=== PATIENT | male | born 1955 | race Caucasian/White ===

== ENCOUNTER → 2016-08-22 | Outpatient (CLI) | payer BC ==
--- NOTE | 2016-08-22 14:44 | XR ---
EXAM TYPE: LUMBAR SPINE X RAY SERIES COMPARISON: 10/04/2015 HISTORY: Pain FINDINGS: Alignment is anatomic. The pedicles are intact. The transverse processes are intact. There is no s pondylolysis or spondylolisthesis. There is an 8 mm lower pole right renal calculus. Severe degenerative disc disease at levels L1-S1 wi th most marked findings at L4-5 and L5-S1. Facet arthropathy noted at all levels. Vascular calcification the aorta. IMPRESSION: 1. Severe multilevel degenerative disc disease. 2. Right lower pole 8 mm renal calculus.
== END | disposition home or self-care (01) ==
LOC: RADXRMAIN 14:00
PROVIDERS: ATTEND Internal Medicine
DX: M51.37 Other intervertebral disc degeneration, lumbosacral region (principal); M51.36 Other intervertebral disc degeneration, lumbar region
CPT/HCPCS: 72110

== ENCOUNTER → 2016-10-05 | Outpatient (CLI) | payer BC ==
[2016-10-05 10:09] LABS: CHCM 32.1; HCT 47.2 % (39.0-53.0); HDW 2.62; MCH 30.9 pg (25.0-35.0); MCHC 31.8 g/dL (31.0-37.0); MCV 97.3 fL (80.0-100.0); Mean Platelet Volume 9.1; RBC 4.85 m/uL (4.30-5.90); RDW 13.5 % (11.5-15.5); WBC 7.1 k/uL (3.8-10.6)
[2016-10-05 10:35] LABS: Cholesterol 144 mg/dL (<200); HDL Cholesterol 38 mg/dL (40-60); Lithium 0.9 mmol/L; Non-African American GFR(MDRD) >60 (>60 ml/min/1.73 sqM); Triglycerides 91 mg/dL (<150)
[2016-10-05 13:21] LABS: Hemoglobin A1C 5.9 % (4.2-6.1)
== END | disposition home or self-care (01) ==
LOC: LABWHC1 08:38
PROVIDERS: ATTEND Psychiatry & Neurology Psychiatry
DX: E03.9 Hypothyroidism, unspecified (principal); E78.5 Hyperlipidemia, unspecified; Z79.899 Other long term (current) drug therapy
CPT/HCPCS: 36415; 80061; 80178; 82565; 83036; 84439; 84443; 85027

== ENCOUNTER → 2016-10-14 | Outpatient (CLI) | payer BC ==
[2016-10-14 10:39] LABS: Basophils # (A) 0.1 k/uL (0-0.2); Basophils % (A) 1 %; CH 30.8; CHCM 32.2; Eosinophils # (A) 0.2 k/uL (0-0.7); Eosinophils % (A) 3 %; HCT 46.9 % (39.0-53.0); HDW 2.57; HGB 14.6 gm/dL (13.0-17.5); Luc # (Auto) 0.22; Luc % (Auto) 4; Lymphocytes # (A) 1.3 k/uL (1.0-4.8); Lymphocytes % (A) 21 %; MCHC 31.1 g/dL (31.0-37.0); MCV 96.3 fL (80.0-100.0); Mean Platelet Volume 8.9; Monocytes # (A) 0.6 k/uL (0-1.0); Monocytes % (A) 10 %; Neutrophils # (A) 3.9 k/uL (1.3-7.7); Neutrophils % (A) 62 %; RBC 4.87 m/uL (4.30-5.90); RDW 13.6 % (11.5-15.5); WBC 6.2 k/uL (3.8-10.6); WBC (Perox) 6.33
--- NOTE | 2016-10-14 15:17 | XR ---
EXAMINATION TYPE: XR chest 2V DATE OF EXAM: 10/14/2016 10:28 AM HISTORY: J12.9 PNEUMONIA,INFLUENZA. REFERENCE: Previous study dated 03/03/2011. FINDINGS: There is a small area of increased density adjacent to the left heart border. Lungs otherwi se clear. Pleural spaces are clear. Heart size is normal. IMPRESSION: I CANNOT EXCLUDE AN EARLY LEFT LOWER LOBE INFILTRATE.
== END | disposition home or self-care (01) ==
LOC: LABWHC1 10:04
PROVIDERS: ATTEND Internal Medicine
DX: J40 Bronchitis, not specified as acute or chronic (principal); J11.1 Influenza due to unidentified influenza virus with other respiratory manifestations; R50.9 Fever, unspecified
CPT/HCPCS: 36415; 71020; 85025; 87502; 99212

== ENCOUNTER 2017-01-14 16:23 | Inpatient (IN) | payer BC ==
[2017-01-14] MEDS ORDERED: ASPIRIN 81 MG CHEW PO STA (16:41)
[2017-01-14] MEDS ORDERED: NITROGLYCERIN OINT 1 INCH/GM PACKET TOPICAL STA (16:41)
--- NOTE | 2017-01-14 16:44 | ED ---
General Adult HPI - General Chief complaint: Chest Pain Stated complaint: Chest Pain Time Seen by Provider: 01/14/17 16:33 Source: patient, RN notes reviewed Mode of arrival: wheelchair Limitations: no limitations - History of Present Illness Initial comments: Patient is a pleasant 61-year-old male presenting to the emergency department complaining of chest discomfort. Onset of symptoms was around 2 hours ago. Patient was doing heavy lifting. Symptoms were moderate. Symptoms are mild at this point rated 2/10. Patient did have associated diaphoresis. No nausea or dyspnea. No leg pain or leg swelling. No abdominal pain. Patient had a couple episodes of chest discomfort yesterday that were short lasting and spontaneous resolved. patient states discomfort is difficult to describe. There was radiation towards left arm. - Related Data Home Medications Medication Instructions Recorded Confirmed Ascorbic Acid [Vitamin C] 1,000 mg PO DAILY 12/16/14 01/14/17 Atorvastatin [Lipitor] 20 mg PO HS 12/16/14 01/14/17 Dipyridamole-Aspirin 200-25 mg 1 cap PO BID 12/16/14 01/14/17 [Aggrenox] Levothyroxine Sodium [Synthroid] 50 mcg PO DAILY 12/16/14 01/14/17 amLODIPine [Norvasc] 5 mg PO HS 12/16/14 01/14/17 Citalopram Hydrobromide [CeleXA] 20 mg PO DAILY 01/14/17 01/14/17 Diclofenac Potassium [Cataflam] 50 mg PO BID 01/14/17 01/14/17 Lisinopril [Zestril] 20 mg PO BID 01/14/17 01/14/17 [place] Carbonate [[place] 300 mg PO BID 01/14/17 01/14/17 Carbonate ER] Allergies Allergy/AdvReac Type Severity Reaction Status Date / Time Penicillins Allergy Rash/Hives Verified 01/14/17 16:55 Review of Systems ROS Statement: Those systems with pertinent positive or pertinent negative responses have been documented in the HPI. ROS Other: All systems not noted in ROS Statement are negative. Constitutional: Denies: fever Eyes: Denies: eye pain ENT: Denies: ear pain Respiratory: Denies: cough, dyspnea Cardiovascular: Reports: chest pain Endocrine: Denies: fatigue Gastrointestinal: Denies: abdominal pain Genitourinary: Denies: dysuria Musculoskeletal: Denies: back pain Skin: Denies: rash Neurological: Denies: weakness Past Medical History Past Medical History: CVA/TIA, Hyperlipidemia, Hypertension, Thyroid Disorder Additional Past Medical History / Comment(s): Stroke 2011 - left eye peripheral and centre vision, enlarged thyroid History of Any Multi-Drug Resistant Organisms: None Reported Past Surgical History: Tonsillectomy Additional Past Surgical History / Comment(s): hemorrhoidectomy, double inguinal hernia repair Past Anesthesia/Blood Transfusion Reactions: No Reported Reaction Past Psychological History: Bipolar Smoking Status: Former smoker Past Alcohol Use History: Rare Past Drug Use History: None Reported - Past Family History Father History Unknown: Yes General Exam Limitations: no limitations General appearance: alert, in no apparent distress Head exam: Present: atraumatic Eye exam: Present: normal appearance, PERRL ENT exam: Present: normal oropharynx Neck exam: Present: normal inspection Respiratory exam: Present: normal lung sounds bilaterally. Absent: chest wall tenderness Cardiovascular Exam: Present: regular rate, normal rhythm Expanded Peripheral pulses: 2+: Radial (R), Radial (L), Posterior Tibialis (R), Posterior Tibialis (L) GI/Abdominal exam: Present: soft. Absent: tenderness Extremities exam: Present: normal inspection. Absent: pedal edema, calf tenderness Neurological exam: Present: alert Psychiatric exam: Present: normal affect, normal mood Skin exam: Present: normal color Course Vital Signs 01/14/17 01/14/17 01/14/17 16:26 16:48 17:28 Temperature 98.0 F Pulse Rate 85 85 Pulse Rate [ 84 Right Radial] Respiratory 20 18 Rate Blood Pressure 151/98 136/89 O2 Sat by Pulse 98 96 Oximetry 01/14/17 18:46 Temperature Pulse Rate 84 Pulse Rate [ Right Radial] Respiratory 18 Rate Blood Pressure 138/89 O2 Sat by Pulse 96 Oximetry EKG Findings - EKG Comments: EKG Findings:: Normal sinus rhythm 72. Normal intervals. Left axis. Normal QRS. Normal ST-T. Medical Decision Making - Medical Decision Making Patient reevaluated and resting comfortably in bed. Symptom-free at this time. Patient and family updated on results and plan. Case was discussed in detail with Dr. Lam, covering for Dr. Huynh he who will admit. - Lab Data Result diagrams: 01/14/17 16:35 01/14/17 16:35 Lab Results 01/14/17 01/14/17 01/14/17 Range/Units 16:35 16:35 16:35 WBC 7.1 (3.8-10.6) k/uL RBC 4.72 (4.30-5.90) m/uL Hgb 14.8 (13.0-17.5) gm/dL Hct 43.9 (39.0-53.0) % MCV 93.1 (80.0-100.0) fL MCH 31.4 (25.0-35.0) pg MCHC 33.8 (31.0-37.0) g/dL RDW 13.6 (11.5-15.5) % Plt Count 170 (150-450) k/uL Neutrophils % 77 % Lymphocytes % 14 % Monocytes % 5 % Eosinophils % 2 % Basophils % 1 % Neutrophils # 5.5 (1.3-7.7) k/uL Lymphocytes # 1.0 (1.0-4.8) k/uL Monocytes # 0.4 (0-1.0) k/uL Eosinophils # 0.1 (0-0.7) k/uL Basophils # 0.1 (0-0.2) k/uL PT 9.8 (9.0-12.0) sec INR 1.0 (<1.1) APTT 21.8 L (22.0-30.0) sec Sodium 143 (137-145) mmol/L Potassium 4.4 (3.5-5.1) mmol/L Chloride 111 H (98-107) mmol/L Carbon Dioxide 22 (22-30) mmol/L Anion Gap 10 mmol/L BUN 21 H (9-20) mg/dL Creatinine 1.03 (0.66-1.25) mg/dL Est GFR (MDRD) Af Amer >60 (>60 ml/min/1.73 sqM) Est GFR (MDRD) Non-Af >60 (>60 ml/min/1.73 sqM) Glucose 171 H (74-99) mg/dL Calcium 9.4 (8.4-10.2) mg/dL Magnesium 1.9 (1.6-2.3) mg/dL Total Bilirubin 0.4 (0.2-1.3) mg/dL AST 30 (17-59) U/L ALT 55 (21-72) U/L Alkaline Phosphatase 84 (38-126) U/L Total Creatine Kinase (55-170) U/L CK-MB (CK-2) (0.0-2.4) ng/mL CK-MB (CK-2) Rel Index Troponin I (0.000-0.034) ng/mL Total Protein 6.7 (6.3-8.2) g/dL Albumin 3.9 (3.5-5.0) g/dL 01/14/17 01/14/17 Range/Units 16:35 16:35 WBC (3.8-10.6) k/uL RBC (4.30-5.90) m/uL Hgb (13.0-17.5) gm/dL Hct (39.0-53.0) % MCV (80.0-100.0) fL MCH (25.0-35.0) pg MCHC (31.0-37.0) g/dL RDW (11.5-15.5) % Plt Count (150-450) k/uL Neutrophils % % Lymphocytes % % Monocytes % % Eosinophils % % Basophils % % Neutrophils # (1.3-7.7) k/uL Lymphocytes # (1.0-4.8) k/uL Monocytes # (0-1.0) k/uL Eosinophils # (0-0.7) k/uL Basophils # (0-0.2) k/uL PT (9.0-12.0) sec INR (<1.1) APTT (22.0-30.0) sec Sodium (137-145) mmol/L Potassium (3.5-5.1) mmol/L Chloride (98-107) mmol/L Carbon Dioxide (22-30) mmol/L Anion Gap mmol/L BUN (9-20) mg/dL Creatinine (0.66-1.25) mg/dL Est GFR (MDRD) Af Amer (>60 ml/min/1.73 sqM) Est GFR (MDRD) Non-Af (>60 ml/min/1.73 sqM) Glucose (74-99) mg/dL Calcium (8.4-10.2) mg/dL Magnesium (1.6-2.3) mg/dL Total Bilirubin (0.2-1.3) mg/dL AST (17-59) U/L ALT (21-72) U/L Alkaline Phosphatase (38-126) U/L Total Creatine Kinase 128 (55-170) U/L CK-MB (CK-2) 2.1 (0.0-2.4) ng/mL CK-MB (CK-2) Rel Index 1.6 Troponin I 0.022 (0.000-0.034) ng/mL Total Protein (6.3-8.2) g/dL Albumin (3.5-5.0) g/dL - Radiology Data Radiology results: image reviewed (Chest x-ray shows no acute process) Critical Care Time Critical Care Time: Yes Total Critical Care Time: 31 Disposition Clinical Impression: Unstable angina pectoris Disposition: ADMITTED IP TO THIS HOSP Referrals: Cezar Webster MD [Primary Care Provider] - 1-2 days Decision Time: 19:03
[2017-01-14 16:52] LABS: Basophils # (A) 0.1 k/uL (0-0.2); Basophils % (A) 1 %; CH 31.2; CHCM 33.7; Eosinophils # (A) 0.1 k/uL (0-0.7); Eosinophils % (A) 2 %; HCT 43.9 % (39.0-53.0); HDW 2.52; HGB 14.8 gm/dL (13.0-17.5); Luc # (Auto) 0.06; Luc % (Auto) 1; Lymphocytes % (A) 14 %; MCH 31.4 pg (25.0-35.0); MCHC 33.8 g/dL (31.0-37.0); MCV 93.1 fL (80.0-100.0); Monocytes # (A) 0.4 k/uL (0-1.0); Monocytes % (A) 5 %; Neutrophils # (A) 5.5 k/uL (1.3-7.7); Neutrophils % (A) 77 %; RBC 4.72 m/uL (4.30-5.90); RDW 13.6 % (11.5-15.5); WBC 7.1 k/uL (3.8-10.6)
[2017-01-14 17:00] LABS: Prothrombin Time 9.8 sec (9.0-12.0)
[2017-01-14 17:06] LABS: ALT 55 U/L (21-72); AST 30 U/L (17-59); Alkaline Phosphatase 84 U/L (38-126); Anion Gap 10 mmol/L; Blood Urea Nitrogen 21 mg/dL (9-20); Calcium 9.4 mg/dL (8.4-10.2); Carbon Dioxide 22 mmol/L (22-30); Chloride 111 mmol/L (98-107); Glucose 171 mg/dL (74-99); Magnesium 1.9 mg/dL (1.6-2.3); Non-African American GFR(MDRD) >60 (>60 ml/min/1.73 sqM); Potassium 4.4 mmol/L (3.5-5.1); Sodium 143 mmol/L (137-145); Total Bilirubin 0.4 mg/dL (0.2-1.3); Total Protein 6.7 g/dL (6.3-8.2)
[2017-01-14 17:09] LABS: Partial Thromboplastin Time 21.8 sec (22.0-30.0)
--- NOTE | 2017-01-14 17:17 | XR ---
EXAMINATION TYPE: XR chest 2V DATE OF EXAM: 01/14/2017 COMPARISON: October 14, 2016 HISTORY: Shortness of breath TECHNIQUE: Frontal and lateral views of the chest are obtained. FINDINGS: Scattered senescent parenchymal changes noted. Hyperinflation compatible with COPD. No evidence for infiltrate. No evidence for atelectasis. Heart size is stable. Mediastinal structures are stable and grossly unremarkable. No evidence for hilar prominence. Degenerative changes dorsal spine. IMPRESSION: 1. No evidence for acute pulmonary disease.
[2017-01-14 17:52] LABS: Creatine Kinase MB 2.1 ng/mL (0.0-2.4)
[2017-01-14] MEDS ORDERED: HEPARIN SODIUM,PORCINE 5,000 UNIT/ML 1 ML VIAL IV PRN (19:03)
[2017-01-14] MEDS ORDERED: NITROGLYCERIN SL TABS 0.4 MG TAB SUBLINGUAL PRN (19:03)
[2017-01-14] MEDS ORDERED: HEPARIN SODIUM,PORCINE 5,000 UNIT/ML 1 ML VIAL IV ONE (19:03)
[2017-01-14] MEDS ORDERED: HEPARIN SODIUM,PORCINE/D5W PMX 25,000 UNIT in DEXTROSE/WATER 1 500ML.BAG IV SCH (19:15)
[2017-01-14] MEDS: amLODIPine 5 MG TAB PO SCH (20:38)
[2017-01-14] MEDS: LITHIUM CARBONATE 300 MG CAP PO SCH (20:38)
[2017-01-14] MEDS: LISINOPRIL 20 MG TAB PO SCH (20:38)
[2017-01-14] MEDS: DIPYRIDAMOLE-ASPIRIN 200-25 MG 1 EACH CPMP.12HR PO SCH (20:38)
[2017-01-14] MEDS ORDERED: ATORVASTATIN 20 MG TAB PO SCH (21:00)
[2017-01-14] MEDS ORDERED: ETODOLAC 200 MG CAPSULE PO SCH (21:30)
[2017-01-14] MEDS: ETODOLAC 200 MG CAPSULE PO SCH (21:58)
[2017-01-14] MEDS: NITROGLYCERIN OINT 1 INCH/GM PACKET TOPICAL SCH (23:20)
[2017-01-15] LABS: Creatine Kinase MB 8.6 ng/mL (0.0-2.4); Troponin I 1.19 ng/mL (0.000-0.034)
[2017-01-15 05:26] LABS: Mean Platelet Volume 8.4
[2017-01-15 05:46] LABS: Cholesterol 150 mg/dL (<200); HDL Cholesterol 35 mg/dL (40-60); Triglycerides 86 mg/dL (<150)
[2017-01-15 06:18] LABS: Creatine Kinase MB 12.4 ng/mL (0.0-2.4); Troponin I 3.76 ng/mL (0.000-0.034)
[2017-01-15] MEDS: NITROGLYCERIN OINT 1 INCH/GM PACKET TOPICAL SCH ×3 (06:31→17:04)
[2017-01-15] MEDS: LEVOTHYROXINE 50 MCG TAB PO SCH (06:32)
--- NOTE | 2017-01-15 08:23 | P.CRDCN ---
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 He states that he was working outside in the yard, he had just moved a heavy cement turtle, shortly thereafter, patient states he developed midsternal chest pressure with associated diaphoresis, nausea, and radiation into the left arm. He states that the day prior when he was driving to work he had 2 separate episodes of chest pain, but these appear to be different. The patient came to the emergency room for further evaluation. EKG on arrival here shows a normal sinus rhythm with nonspecific ST-T wave changes. Subsequent EKG performed this morning shows a normal sinus rhythm with no acute changes. Troponins 0.0-2, 1.1 , 3.7. Magnesium level I.9, BUN 21, creatinine 1.0, potassium 4.4. CBC normal. Cholesterol 150, LDL 98, HDL 35, triglycerides 86. Blood pressure 132/ 80 with a heart rate in the 70s. Temperature 97.1, 96% on 2 L of oxygen. At the time of my examination this morning, patient is currently chest pain-free. He did have one episode of diaphoresis earlier this morning. Past Medical History Past Medical History: CVA/TIA, Hyperlipidemia, Hypertension, Thyroid Disorder Additional Past Medical History / Comment(s): Stroke 2010 - left eye peripheral and centre vision, enlarged thyroid History of Any Multi-Drug Resistant Organisms: None Reported Past Surgical History: Tonsillectomy Additional Past Surgical History / Comment(s): hemorrhoidectomy, double inguinal hernia repair Past Anesthesia/Blood Transfusion Reactions: No Reported Reaction Past Psychological History: Bipolar, Depression Additional Psychological History / Comment(s): Takes lithium Smoking Status: Former smoker Past Drug Use History: None Reported - Past Family History Father History Unknown: Yes Medications and Allergies Home Medications Medication Instructions Recorded Confirmed Type Ascorbic Acid [Vitamin C] 1,000 mg PO DAILY 12/16/14 01/14/17 History Atorvastatin [Lipitor] 20 mg PO HS 12/16/14 01/14/17 History Dipyridamole-Aspirin 200-25 mg 1 cap PO BID 12/16/14 01/14/17 History [Aggrenox] Levothyroxine Sodium [Synthroid] 50 mcg PO DAILY 12/16/14 01/14/17 History amLODIPine [Norvasc] 5 mg PO HS 12/16/14 01/14/17 History Citalopram Hydrobromide [CeleXA] 20 mg PO DAILY 01/14/17 01/14/17 History Diclofenac Potassium [Cataflam] 50 mg PO BID 01/14/17 01/14/17 History Lisinopril [Zestril] 20 mg PO BID 01/14/17 01/14/17 History Antoine Carbonate [Antoine 600 mg PO BID 01/14/17 01/14/17 History Carbonate ER] Allergies Allergy/AdvReac Type Severity Reaction Status Date / Time Penicillins Allergy Rash/Hives Verified 01/14/17 20:27 Physical Exam Vitals: Vital Signs Temp Pulse Pulse Pulse Resp BP BP 01/15/17 04:00 97.1 F L 72 17 01/14/17 23:14 97.9 F 61 18 01/14/17 20:32 20 01/14/17 20:11 98 F 83 20 138/74 01/14/17 19:27 81 20 130/69 01/14/17 18:46 84 18 138/89 01/14/17 17:28 85 18 136/89 01/14/17 16:48 84 01/14/17 16:26 98.0 F 85 20 151/98 BP Pulse Ox 01/15/17 04:00 132/80 96 01/14/17 23:14 111/72 97 01/14/17 20:32 01/14/17 20:11 98 01/14/17 19:27 98 01/14/17 18:46 96 01/14/17 17:28 96 01/14/17 16:48 01/14/17 16:26 98 Intake and Output 01/14/17 01/15/17 01/15/17 22:59 06:59 14:59 Intake Total 289 Output Total 450 Balance -161 Intake: IV 160 NS 0.9 160 Intake, IV Titration 129 Amount Heparin Sodium,Porcine/ 129 D5w Pmx 25,000 unit In Dextrose/Water 1 500ml. bag @ 11.306 UNITS/KG/HR 20 mls/hr IV .Q24H [facility] Rx #:[id number] Oral 0 Output: Urine 450 Other: Voiding Method Toilet Toilet # Voids 2 Weight 87.4 kg 86.1 kg PHYSICAL EXAMINATION: HEENT: [Head is atraumatic, normocephalic. Pupils equal, round. Neck is supple. There is no elevated jugular venous pressure.] HEART EXAMINATION: [Heart S1, S2 normal. No murmur or gallop heard.] CHEST EXAMINATION:[ Lungs are clear to auscultation and precussion. No chest wall tenderness is noted on palpation or with deep breathing.] ABDOMEN: [ Soft, nontender. Bowel sounds are heard. No organomegaly noted]. EXTREMITIES:[ 2+ peripheral pulses with no evidence of peripheral edema and no calf tenderness noted]. NEUROLOGIC [patient is awake, alert and oriented -3.] . Results 01/15/17 04:38 01/14/17 16:35 Cardiac Enzymes 01/14/17 01/14/17 01/14/17 Range/Units 16:35 16:35 16:35 AST 30 (17-59) U/L CK-MB (CK-2) 2.1 (0.0-2.4) ng/mL Troponin I 0.022 (0.000-0.034) ng/mL 01/14/17 01/15/17 Range/Units 22:21 04:38 AST (17-59) U/L CK-MB (CK-2) 8.6 H* 12.4 H* (0.0-2.4) ng/mL Troponin I 1.190 H* 3.760 H* (0.000-0.034) ng/mL Coagulation 01/14/17 01/15/17 Range/Units 16:35 01:13 PT 9.8 (9.0-12.0) sec APTT 21.8 L 37.5 H (22.0-30.0) sec Lipids 01/15/17 Range/Units 04:38 Triglycerides 86 (<150) mg/dL Cholesterol 150 (<200) mg/dL HDL Cholesterol 35 L (40-60) mg/dL CBC 01/14/17 01/15/17 Range/Units 16:35 04:38 WBC 7.1 (3.8-10.6) k/uL RBC 4.72 (4.30-5.90) m/uL Hgb 14.8 (13.0-17.5) gm/dL Hct 43.9 (39.0-53.0) % Plt Count 170 155 (150-450) k/uL Comprehensive Metabolic Panel 01/14/17 Range/Units 16:35 Sodium 143 (137-145) mmol/L Potassium 4.4 (3.5-5.1) mmol/L Chloride 111 H (98-107) mmol/L Carbon Dioxide 22 (22-30) mmol/L BUN 21 H (9-20) mg/dL Creatinine 1.03 (0.66-1.25) mg/dL Glucose 171 H (74-99) mg/dL Calcium 9.4 (8.4-10.2) mg/dL AST 30 (17-59) U/L ALT 55 (21-72) U/L Alkaline Phosphatase 84 (38-126) U/L Total Protein 6.7 (6.3-8.2) g/dL Albumin 3.9 (3.5-5.0) g/dL Current Medications Generic Name Dose Route Start Last Admin Trade Name Freq PRN Reason Stop Dose Admin Amlodipine Besylate 5 mg 01/14/17 21:00 01/14/17 20:38 Norvasc PO 5 mg HS MARY Administration Ascorbic Acid 1,000 mg 01/15/17 09:00 Vitamin C PO DAILY [facility] Aspirin 325 mg 01/15/17 09:00 Aspirin PO DAILY [facility] Citalopram Hydrobromide 20 mg 01/15/17 09:00 Celexa PO DAILY [facility] Dipyridamole/Aspirin 1 each 01/14/17 21:00 01/14/17 20:38 Aggrenox PO 1 each BID MARY Administration Etodolac 200 mg 01/14/17 21:30 01/14/17 21:58 Lodine PO 200 mg BID MARY Administration Heparin Sodium (Porcine) 0 unit 01/14/17 19:03 Heparin IV Q6HR PRN Low PTT Protocol Heparin Sodium/Dextrose 25,000 500 mls @ 20 mls/hr 01/14/17 19:15 01/15/17 01 :51 unit/ IV Solution IV 14.306 units/kg/hr .Q24H MARY 25.3 mls/hr Protocol Titration 11.306 UNITS/KG/HR Levothyroxine Sodium 50 mcg 01/15/17 06:30 01/15/17 06:32 Synthroid PO 50 mcg DAILY@0630 MARY Administration Lisinopril 20 mg 01/14/17 21:00 01/14/17 20:38 Zestril PO 20 mg BID MARY Administration Antoine Carbonate 300 mg 01/14/17 21:00 01/14/17 20:38 [place]ine Carbonate PO 300 mg BID MARY Administration Nitroglycerin 1 inch 01/15/17 00:00 01/15/17 06:31 Nitro-Bid Oint TOPICAL Not Given Q6HR MARY Nitroglycerin 0.4 mg 01/14/17 19:03 Nitrostat SUBLINGUAL Q5M PRN Chest Pain Sodium Chloride 10 ml 01/14/17 21:00 01/14/17 20:38 Saline Flush IV Not Given BID MARY Intake and Output 01/14/17 01/15/17 01/15/17 22:59 06:59 14:59 Intake Total 289 Output Total 450 Balance -161 Intake: IV 160 NS 0.9 160 Intake, IV Titration 129 Amount Heparin Sodium,Porcine/ 129 D5w Pmx 25,000 unit In Dextrose/Water 1 500ml. bag @ 11.306 UNITS/KG/HR 20 mls/hr IV .Q24H [facility] Rx #:[id number] Oral 0 Output: Urine 450 Other: Voiding Method Toilet Toilet # Voids 2 Weight 87.4 kg 86.1 kg 01/15/17 04:38 01/14/17 16:35 EKG Interpretations (text) EKG shows normal sinus rhythm with nonspecific ST-T wave changes. Assessment and Plan Plan: Assessment and plan #1 non-ST elevation myocardial infarction #2 history of hypertension #3 history of hyperlipidemia #4 strong family history of premature coronary artery disease #5 bipolar disorder #6 Prior CVA Plan We will start the patient on Lipitor 80 mg 1 tablet now and daily at bedtime. Continue IV heparin and Nitropaste. Patient did receive aspirin and is on an aspirin daily. We will obtain a stat echocardiogram with Doppler study. Patient also has been advised that he will need to undergo cardiac catheterization for more definitive diagnosis. The risks and the benefits were explained to the patient in detail and he is willing to proceed. Further recommendations will be based on these findings and the patient's clinical course. DNP note has been reviewed, I agree with a documented findings and plan of care. Patient was seen and examined.
[2017-01-15] MEDS: DIPYRIDAMOLE-ASPIRIN 200-25 MG 1 EACH CPMP.12HR PO SCH ×2 (09:14→20:12)
[2017-01-15] MEDS: ETODOLAC 200 MG CAPSULE PO SCH ×2 (09:14→20:13)
[2017-01-15] MEDS: LISINOPRIL 20 MG TAB PO SCH ×2 (09:23→20:13)
[2017-01-15] MEDS: ASPIRIN 325 MG TAB PO SCH (09:23)
[2017-01-15] MEDS: LITHIUM CARBONATE 300 MG CAP PO SCH ×2 (09:23→20:13)
[2017-01-15] MEDS: ASCORBIC ACID 500 MG TAB PO SCH (09:23)
[2017-01-15] MEDS: CITALOPRAM HYDROBROMIDE 20 MG TAB PO SCH (09:24)
[2017-01-15] MEDS: ATORVASTATIN 80 MG TAB PO SCH (09:30)
[2017-01-15] MEDS ORDERED: RX INFO: IV CONTRAST WAS GIVEN 1 EACH MISC MISCELLANE PRN ×2 (09:42→12:39)
[2017-01-15] MEDS ORDERED: SODIUM CHLORIDE 0.9% 1,000 ML IV SCH ×2 (09:45→12:45)
--- NOTE | 2017-01-15 10:00 | P.HPIM ---
History of Present Illness Chief complaint: Chest pain History of present illness: The patient is a 61 year old gentleman. He is a patient of Dr. Webster for whom I am covering. He presented yesterday to the emergency room after having a couple episodes of chest pain. He states he was moving a heavy cement object and developed some substernal chest pain associated with diaphoresis and left arm radiation. Subsequently he had 2 further episodes of chest discomfort while he was driving his vehicle to work. Patient has no previous cardiac history. But does have a previous history of a CVA/TIA. Along with other risk factors. Past medical history: A stroke with involvement of the left eye and vision back in 2010. Comorbidities include hyperlipidemia and hypertension. Treated bipolar. History of previous tobacco usage. Hypothyroidism on replacement therapy. Previous surgeries include tonsillectomy and hemorrhoidectomy along with inguinal hernia repairs. No definite history of previous myocardial infarction or diabetes. Medications: ALLERGIES: Penicillin with rash and hives Home medications: Amlodipine 5 mg at at bedtime Stratford carbonate 600 mg twice a day Lisinopril 20 mg twice a day Levothyroxine 50 g daily Aggrenox/Dipyridamole-aspirin 200-25 mg one twice a day Citalopram 20 mg daily Atorvastatin 20 mg at at bedtime Vitamin C 1000 mg daily Review of systems: Patient denies any unusual headache or new visual disturbances. No fever or chills or cough associated with this. No nausea or vomiting. No urinary or bowel symptomatology, no melena or hematochezia. Patient states when he is on his feet a lot he does develop some lower extremity edema that clears. Family history: Apparently known heart disease with his father. Social history: Patient does have a previous history of tobacco usage but not presently. Patient presently is employed at a [employer]. Apparently he has to take care of his quite a bit. Physical examination Last vital signs reveal a temperature of 97.3 with a pulse of 62 and respirations 16. Blood pressure 125/75 and he is 98% saturated on 2 L. Head and neck exam unremarkable. Extraocular movements intact. No adenopathy or thyromegaly or bruits detected. Lungs are clear to auscultation and percussion Heart tones are regular without murmurs or rubs appreciated. Abdomen is soft and nontender. No organomegaly. Genital and rectal exam deferred. No unusual edema. He is alert and oriented. Cranial nerves intact. No focal weakness noted. Laboratory results: CBC unremarkable with a white count 7.1 and a hemoglobin 14.8 and a platelet count of 170. Initial INR was 1.0. He is on heparin with a PTT of 40.0 this morning. Initial chemistries revealed a sodium 143 with a potassium of 4.4 and a CO2 content of 22. BUN of 21 with a creatinine of 1.03 given him a GFR greater than 60. Random blood sugar was 171. Initial troponin was low at 0.0-2 but subsequent values have increased to 1.19 and 3.76. CK also normal on presentation at 128 did increase to 201 and 213. Cholesterol profile revealed a total cholesterol 150 with an LDL cholesterol of 98 and triglycerides 86 along with HDL of 35. EKG showed a normal sinus rhythm with some left axis deviation but without ischemic changes noted. Chest x-ray showed no evidence of acute disease. Impressions: Non-ST segment elevated myocardial infarction with chest pain and elevated troponin values in this 61-year-old gentleman with known risk factors that include hyperlipidemia and hypertension along with previous CVA. Hypothyroidism on replacement therapy History of bipolar disorder. Previous tobacco usage. Plans: Consultation has been obtained with cardiology. Echocardiogram has been performed and results pending. Discussed with patient and staff likely need for cardiac catheterization and further recommendations per cardiology. Questions answered for the patient to the best of my abilities. Patient seems he understand his underlying condition and need for further evaluation and treatment. Past Medical History Past Medical History: CVA/TIA, Hyperlipidemia, Hypertension, Thyroid Disorder Additional Past Medical History / Comment(s): Stroke 2010 - left eye peripheral and centre vision, enlarged thyroid History of Any Multi-Drug Resistant Organisms: None Reported Past Surgical History: Tonsillectomy Additional Past Surgical History / Comment(s): hemorrhoidectomy, double inguinal hernia repair Past Anesthesia/Blood Transfusion Reactions: No Reported Reaction Past Psychological History: Bipolar, Depression Additional Psychological History / Comment(s): Takes lithium Smoking Status: Former smoker Past Drug Use History: None Reported - Past Family History Father History Unknown: Yes Medications and Allergies Home Medications Medication Instructions Recorded Confirmed Type Ascorbic Acid [Vitamin C] 1,000 mg PO DAILY 12/16/14 01/14/17 History Atorvastatin [Lipitor] 20 mg PO HS 12/16/14 01/14/17 History Dipyridamole-Aspirin 200-25 mg 1 cap PO BID 12/16/14 01/14/17 History [Aggrenox] Levothyroxine Sodium [Synthroid] 50 mcg PO DAILY 12/16/14 01/14/17 History amLODIPine [Norvasc] 5 mg PO HS 12/16/14 01/14/17 History Citalopram Hydrobromide [CeleXA] 20 mg PO DAILY 01/14/17 01/14/17 History Diclofenac Potassium [Cataflam] 50 mg PO BID 01/14/17 01/14/17 History Lisinopril [Zestril] 20 mg PO BID 01/14/17 01/14/17 History Stratford Carbonate [Stratford 600 mg PO BID 01/14/17 01/14/17 History Carbonate ER] Allergies Allergy/AdvReac Type Severity Reaction Status Date / Time Penicillins Allergy Rash/Hives Verified 01/14/17 20:27 Physical Exam Vitals: Vital Signs Temp Pulse Pulse Pulse Resp BP BP 01/15/17 08:00 97.3 F L 62 84 16 01/15/17 04:00 97.1 F L 72 17 01/14/17 23:14 97.9 F 61 18 01/14/17 20:32 20 01/14/17 20:11 98 F 83 20 138/74 01/14/17 19:27 81 20 130/69 01/14/17 18:46 84 18 138/89 01/14/17 17:28 85 18 136/89 01/14/17 16:48 84 01/14/17 16:26 98.0 F 85 20 151/98 BP Pulse Ox 01/15/17 08:00 125/75 98 01/15/17 04:00 132/80 96 01/14/17 23:14 111/72 97 01/14/17 20:32 01/14/17 20:11 98 01/14/17 19:27 98 01/14/17 18:46 96 01/14/17 17:28 96 01/14/17 16:48 01/14/17 16:26 98 Intake and Output 01/14/17 01/15/17 01/15/17 22:59 06:59 14:59 Intake Total 289 Output Total 450 Balance -161 Intake: IV 160 NS 0.9 160 Intake, IV Titration 129 Amount Heparin Sodium,Porcine/ 129 D5w Pmx 25,000 unit In Dextrose/Water 1 500ml. bag @ 11.306 UNITS/KG/HR 20 mls/hr IV .Q24H COUNT INCLUDES THE [facility] Rx #:[id number] Oral 0 Output: Urine 450 Other: Voiding Method Toilet Toilet Toilet # Voids 2 Weight 87.4 kg 86.1 kg Results CBC & Chem 7: 01/15/17 04:38 01/14/17 16:35 Labs: Abnormal Lab Results - Last 24 Hours (Table) 01/14/17 01/14/17 01/14/17 Range/Units 16:35 16:35 22:21 APTT 21.8 L (22.0-30.0) sec Chloride 111 H (98-107) mmol/L BUN 21 H (9-20) mg/dL Glucose 171 H (74-99) mg/dL Total Creatine Kinase 201 H (55-170) U/L CK-MB (CK-2) 8.6 H* (0.0-2.4) ng/mL Troponin I 1.190 H* (0.000-0.034) ng/mL HDL Cholesterol (40-60) mg/dL 01/15/17 01/15/17 01/15/17 Range/Units 01:13 04:38 04:38 APTT 37.5 H (22.0-30.0) sec Chloride (98-107) mmol/L BUN (9-20) mg/dL Glucose (74-99) mg/dL Total Creatine Kinase 213 H (55-170) U/L CK-MB (CK-2) 12.4 H* (0.0-2.4) ng/mL Troponin I 3.760 H* (0.000-0.034) ng/mL HDL Cholesterol 35 L (40-60) mg/dL 01/15/17 Range/Units 07:50 APTT 40.0 H (22.0-30.0) sec Chloride (98-107) mmol/L BUN (9-20) mg/dL Glucose (74-99) mg/dL Total Creatine Kinase (55-170) U/L CK-MB (CK-2) (0.0-2.4) ng/mL Troponin I (0.000-0.034) ng/mL HDL Cholesterol (40-60) mg/dL Thrombosis Risk Factor Assmnt - Choose All That Apply Any of the Below Risk Factors Present?: Yes Each Factor Represents 1 point: Abnormal pulmonary function (COPD), Age 41-60 years, Obesity (BMI >25) Other Risk Factors: No Other congenital or acquired thrombophilia - If yes, enter type in comment: No Thrombosis Risk Factor Assessment Total Risk Factor Score: 3 Thrombosis Risk Factor Assessment Level: Moderate Risk
[2017-01-15] MEDS ORDERED: SODIUM CHLORIDE 0.9% 1,000 ML in EMPTY BAG 1 BAG IV ONE (10:08)
[2017-01-15] MEDS ORDERED: NITROGLYCERIN SL TABS 0.4 MG TAB SUBLINGUAL PRN ×2 (10:08→12:39)
[2017-01-15] MEDS ORDERED: ATORVASTATIN 80 MG TAB PO STA (10:08)
[2017-01-15] MEDS ORDERED: ALPRAZolam 0.5 MG TAB PO PRN (10:08)
[2017-01-15] MEDS ORDERED: ASPIRIN 325 MG TAB PO STA (10:08)
[2017-01-15] MEDS ORDERED: ALPRAZolam 0.25 MG TAB PO PRN (10:08)
--- NOTE | 2017-01-15 10:47 | CT ---
CT CHEST FOR PULMONARY EMBOLISM. EXAMINATION TYPE: CT angio chest DATE OF EXAM: 01/15/2017 INDICATION: Unstable angina CT DLP: 897 mGycm, Automated exposure control for dose reduction was used. CONTRAST: Patient injected with 100 mL of Omnipaque 350. COMPARISON: 09/30/2010 TECHNIQUE: CT of the chest is performed on a spiral scan at 2 mm thick sections. Study is performed with intravenous contrast timed for evaluation for pulmonary embolism. This will limit additional po rtions of the evaluation. 3-D MIP images reconstructed by the technologist are reviewed on the compu ter in the coronal and sagittal planes. FINDINGS: No persistent filling defects are evident to suggest an acute pulmonary embolism. No mediastinal or hilar adenopathy enlarged by CT criteria is evident. The ascending aorta diameter at the level of the main pulmonary artery is 4.0 cm. The main pulmonary artery diameter at the bifur cation is 2.7 cm. Coronary artery calcification is present. Minimal dependent increased lung markings are present. Findings can BE compatible some mild subsegmen abigail atelectasis. There is a punctate calcification along the posterior medial right pleural margin. S eries 10 image 21 Thyroid is somewhat prominent. Ultrasound can be performed to evaluate the thyroid. Goiter may be present. There is a 1.1 cm hypodensity within the medial mid left lobe thyroid. Limited CT section through the upper abdomen are unremarkable. IMPRESSIONS: 1. No acute pulmonary embolism. 2. Thyromegaly with possible nodule. Ultrasound of the thyroid is recommended for additional evaluati on. 2. Thyromegaly with nodule on the left. Additional evaluation with ultrasound is recommended.
[2017-01-15] MEDS ORDERED: IV FLUID CONTINUATION 650 ML IV ONE (11:26)
--- NOTE | 2017-01-15 11:30 | ECHOF ---
Referral Reason:assess lvf MEASUREMENTS -------- HEIGHT: 172.7 cm WEIGHT: 85.7 kg BP: 132/80 RVIDd: 3.1 cm (< 3.3) IVSd: 1.2 cm (0.6 - 1.1) LVIDd: 5.3 cm (3.9 - 5.3) LVPWd: 1.2 cm (0.6 - 1.1) IVSs: 1.8 cm LVIDs: 3.5 cm LVPWs: 1.5 cm LA Diam: 4.0 cm (2.7 - 3.8) LAESV Index (A-L): 26.81 ml/m Ao Diam: 4.5 cm (2.0 - 3.7) AV Cusp: 2.5 cm (1.5 - 2.6) MV EXCURSION: 15.965 mm (> 18.000) MV EF SLOPE: 82 mm/s (70 - 150) EPSS: 1.4 cm MV E Israel: 0.75 m/s MV DecT: 193 ms MV A Israel: 0.68 m/s MV E/A Ratio: 1.10 AR PHT: 779 ms FINDINGS -------- Sinus rhythm. This was a technically good study. The left ventricular size is normal. Left ventricular wall thickness is normal. Overall left ventricular systolic function is normal with, an EF between 60 - 65 %. Septal wall motion is delayed, and consistent with conduction delay/bundle branch block. The right ventricle is normal in size and function. Normal LA size by volume 22+/-6 ml/m2. The right atrium is normal in size. The aortic valve is trileaflet and appears structurally normal. There is mild aortic regurgitation. The mitral valve is normal. The tricuspid valve appears structurally normal. Trace/mild (physiologic) pulmonic regurgitation. The aortic root is dilated measuring 4.5cm. Normal inferior vena cava with normal inspiratory collapse consistent with estimated right atrial pressure of 5 mmHg. The pericardium is normal. CONCLUSIONS -------- 1. Sinus rhythm. 2. The aortic valve is trileaflet and appears structurally normal. 3. There is mild aortic regurgitation. 4. The mitral valve is normal. 5. The tricuspid valve appears structurally normal. 6. Trace/mild (physiologic) pulmonic regurgitation. 7. The aortic root is dilated measuring 4.5cm. 8. Normal inferior vena cava with normal inspiratory collapse consistent with estimated right atrial pressure of 5 mmHg. 9. The pericardium is normal. 10. This was a technically good study. 11. The left ventricular size is normal. 12. Left ventricular wall thickness is normal. 13. Overall left ventricular systolic function is normal with, an EF between 60 - 65 %. 14. Septal wall motion is delayed, and consistent with conduction delay/bundle branch block. 15. The right ventricle is normal in size and function. 16. Normal LA size by volume 22+/-6 ml/m2. 17. The right atrium is normal in size. PLEATER: Mechelle Martinez RDCS
[2017-01-15] MEDS ORDERED: fentaNYL (PF) 50 MCG/ML 2 ML AMP IVP ONE (11:32)
[2017-01-15] MEDS ORDERED: diphenhydrAMINE 50 MG/ML 1 ML VIAL IVP ONE (11:32)
[2017-01-15] MEDS ORDERED: MIDAZOLAM 2 MG/2 ML VIAL IVP ONE (11:32)
[2017-01-15] MEDS ORDERED: BIVALIRUDIN BOLUS 250 MG/50 ML IV ONE ×2 (12:11)
[2017-01-15] MEDS ORDERED: BIVALIRUDIN 250 MG in SODIUM CHLORIDE 0.9% 50 ML IV ONE ×4 (12:12)
[2017-01-15] MEDS ORDERED: TICAGRELOR 90 MG TAB PO ONE (12:19)
[2017-01-15] MEDS ORDERED: NITROGLYCERIN 1000MCG/10ML SYRINGE INTRACORON ONE (12:20)
[2017-01-15] MEDS ORDERED: niCARdipine Syringe (1,000 mcg/10 mL) INTRACORON ONE (12:31)
[2017-01-15] MEDS ORDERED: IODIXANOL 320 MG/ML 100 ML INTRAARTER ONE (12:33)
[2017-01-15] MEDS ORDERED: MAG HYDROX/AL HYDROX/SIMETH 30 ML CUP PO PRN (12:39)
[2017-01-15] MEDS ORDERED: ATROPINE SULFATE 0.1 MG/ML 10ML SYRINGE IV PRN (12:39)
[2017-01-15] MEDS ORDERED: ZOLPIDEM 5 MG TAB PO PRN (12:39)
--- NOTE | 2017-01-15 12:48 | P.PCN ---
Date of Procedure: 01/15/17 Preoperative Diagnosis: Postoperative Diagnosis: Procedure(s) Performed: Implants: Indications for Procedure: Operative Findings: PERCUTANEOUS CORONARY INTERVENTION Performing physician: Jefferson Roman M.D. Procedure performed: #1 Aspiration thrombectomy from the proximal LAD #2 Successful stenting of the proximal LAD using 4.0 x 12 mm Xience DENISSE with good angiographic results. Indication: This is a pleasant 61-year-old gentleman with hypertension, dyslipidemia, and strong family history of CAD, presented to the hospital with a chest discomfort and was diagnosed with acute non-STEMI. He underwent a heart catheterization by Dr. VC Alberto and was found to have severe disease involving the proximal LAD just before the bifurcation into diagonal branch with what it seems to be thrombus formation likely secondary to plaque rupture. The decision was made toward the cutaneous coronary intervention after reviewing the angiogram. Approach: Right common femoral artery Complication: None Level of sedation: Moderate sedation length of 26 minutes Procedure description: After diagnostic heart catheterization was performed by Dr. VC Alberto and after reviewing the angiogram was decided to pursue percutaneous coronary intervention. Anticoagulation was initiated using Angiomax was bolused and drip. Left main was engaged using a JL4 guiding catheter. The LAD was wired using a whisper wire. Subsequently I did multiple runs off aspiration thrombectomy using the export catheter. Visually, I was unable to extract any thrombus but the following angiogram showed the disappearance of the thrombus from the proximal LAD. Subsequently I did direct stenting of the lesion in the proximal LAD using 4.0 x 12 mm Xience DENISSE where the stent was positioned under fluoroscopy guidance and deployed under 12 kimberly for 20 seconds. The following angiogram showed good angiographic results without perforation and without dissection was good flow in both the LAD and diagonal. Postprocedure management: #1 dual antiplatelet therapy #2 Risk factors modification #3 follow-up with the patient Description of Procedure:
[2017-01-15] MEDS: amLODIPine 5 MG TAB PO SCH (20:12)
[2017-01-15 20:48] LABS: Glucose,Whole Blood 97 mg/dL (75-99)
[2017-01-15] MEDS: TICAGRELOR 90 MG TAB PO SCH (21:20)
[2017-01-16] MEDS: NITROGLYCERIN OINT 1 INCH/GM PACKET TOPICAL SCH ×4 (04:47→17:20)
[2017-01-16] MEDS: LEVOTHYROXINE 50 MCG TAB PO SCH (06:32)
[2017-01-16 06:41] LABS: Anion Gap 8 mmol/L; Blood Urea Nitrogen 13 mg/dL (9-20); Calcium 9.2 mg/dL (8.4-10.2); Carbon Dioxide 23 mmol/L (22-30); Chloride 113 mmol/L (98-107); Glucose 100 mg/dL (74-99); Non-African American GFR(MDRD) >60 (>60 ml/min/1.73 sqM); Potassium 3.9 mmol/L (3.5-5.1); Sodium 144 mmol/L (137-145)
[2017-01-16 06:50] LABS: Basophils % (A) 0 %; CH 30.9; CHCM 33.2; Eosinophils # (A) 0.2 k/uL (0-0.7); Eosinophils % (A) 2 %; HDW 2.52; HGB 14.3 gm/dL (13.0-17.5); Luc # (Auto) 0.11; Luc % (Auto) 1; Lymphocytes # (A) 1.5 k/uL (1.0-4.8); Lymphocytes % (A) 17 %; MCHC 33.2 g/dL (31.0-37.0); MCV 93.3 fL (80.0-100.0); Mean Platelet Volume 8.5; Monocytes # (A) 0.5 k/uL (0-1.0); Monocytes % (A) 6 %; Neutrophils # (A) 6.3 k/uL (1.3-7.7); Neutrophils % (A) 73 %; RBC 4.61 m/uL (4.30-5.90); RDW 13.6 % (11.5-15.5); WBC 8.6 k/uL (3.8-10.6); WBC (Perox) 8.44
[2017-01-16] MEDS: ASCORBIC ACID 500 MG TAB PO SCH (07:51)
[2017-01-16] MEDS: ETODOLAC 200 MG CAPSULE PO SCH ×2 (07:51→21:00)
[2017-01-16] MEDS: LISINOPRIL 20 MG TAB PO SCH ×2 (07:51→21:00)
[2017-01-16] MEDS: ATORVASTATIN 80 MG TAB PO SCH (07:52)
[2017-01-16] MEDS: TICAGRELOR 90 MG TAB PO SCH ×2 (07:52→21:01)
[2017-01-16] MEDS: LITHIUM CARBONATE 300 MG CAP PO SCH ×2 (07:52→21:00)
[2017-01-16] MEDS: ASPIRIN 81 MG CHEW PO SCH (07:52)
[2017-01-16] MEDS: CITALOPRAM HYDROBROMIDE 20 MG TAB PO SCH (07:53)
[2017-01-16] MEDS: DIPYRIDAMOLE-ASPIRIN 200-25 MG 1 EACH CPMP.12HR PO SCH ×2 (07:53→21:00)
--- NOTE | 2017-01-16 10:49 | P.PN ---
Progress Note - Text The patient is a 61 year old gentleman who is a patient of Dr. Webster for whom I am covering today. Patient presented 2 days ago to emergency room after having couple episodes of chest pain. Subsequent laboratory studies did reveal increase in his troponin values ruling him in for a non-ST segment myocardial infarction. Patient was treated with heparin and underwent a cardiology evaluation and yesterday underwent successful stenting of the proximal LAD. The patient this morning feels good. He denies any chest pain or shortness of breath. No nausea or vomiting. Vital signs reveal temperature 96.8 with a pulse of 75 and respirations 16. Blood pressure is 132/79 and he is 97% saturated on room air. Lung and heart examination is clear and regular. No murmurs. Abdomen is soft and nontender. No distal edema on exam. He is alert and oriented. Cranial nerves intact. No focal neurological deficits. Results: CBC was unremarkable with a white count of 8.6 and a hemoglobin 14.3 and a platelet count of 171. Sodium is 144 with potassium 3.9. BUN of 13 with creatinine 0.97 given him a GFR greater than 60 and blood sugar was 100 this morning. Impressions and plans: Patient with the new history of non-ST segment elevated myocardial infarction and post stenting of the proximal LAD. The patient is presently on amlodipine and lisinopril along with Brilinta. Further recommendations per cardiology regarding further treatment and possible discharge. Case discussed with patient and staff at bedside along with cardiology this morning. Patient is to follow-up with Dr. Webster his primary care physician upon discharge.
[2017-01-16] MEDS ORDERED: BUTA/APAP/CAF/COD 50-325-40-30 CAP PO PRN (15:08)
--- NOTE | 2017-01-16 18:00 | P.PN ---
Subjective Principal diagnosis: Acute anterior wall myocardial infarction This 61-year-old gentleman was admitted with acute anterior wall MD. Patient had a cardiac catheterization and stent placement approximately LAD. Patient had a subacute non-ST elevation microinfarction. Patient is doing well. Denies any chest pain or shortness of breath. Tolerating activity. We'll start him on beta sevreo in the form of metoprolol 25 mg by mouth twice daily. Continue rest of the medication. Increase activity as tolerated. Objective - Vital Signs Vital signs: Vital Signs Temp 96.6 F L 01/16/17 15:32 Pulse 70 01/16/17 15:32 Resp 18 01/16/17 15:32 BP 143/94 01/16/17 15:32 Pulse Ox 98 01/16/17 15:32 Intake & Output 01/15/17 01/16/17 01/16/17 18:59 06:59 18:59 Intake Total 2717 880 325 Output Total 600 650 675 Balance 2117 230 -350 Weight 86.6 kg Intake: IV 477 Intake, IV Titration 1200 400 Amount Sodium Chloride 0.9% 1, 1200 000 ml @ 100 mls/hr IV . Q10H [facility] Rx#:[id number] Sodium Chloride 0.9% 1, 400 000 ml @ 100 mls/hr IV . Q10H [facility] Rx#:[id number] Oral 1040 480 325 Output: Urine 600 650 675 Other: Voiding Method Toilet Toilet Toilet # Voids 1 2 1 # Bowel Movements 1 1 - Exam GENERAL EXAM: Patient is alert and oriented and doesn't appear to be in any acute distress HEENT: Normocephalic. Normal reaction of pupils, equal size, normal range of extraocular motion. No erythema or exudates in the throat. NECK: No masses, no nuchal rigidity. CHEST: No chest wall deformity. LUNGS: Equal air entry with no crackles or wheeze. HEART: S1 and S2 normal with no audible mumurs or gallops. Regular rhythm, femorals equal on both sides.. ABDOMEN: No hepatosplenomegaly, normal bowel sounds, no guarding or rigidity. SKIN: No rashes CENTRAL NERVOUS SYSTEM: No focal deficits. EXTREMITIES: No cyanosis, clubbing or edema. - Labs CBC & Chem 7: 01/16/17 06:13 07/04/17 06:13 Labs: Abnormal Lab Results - Last 24 Hours (Table) 01/16/17 Range/Units 06:13 Chloride 113 H (98-107) mmol/L Glucose 100 H (74-99) mg/dL Assessment and Plan (1) Non-ST elevation MD (NSTEMI) Status: Acute (2) History of intravascular stent placement Status: Acute Plan: Increase activity. Had beta severo. If stable patient be discharged within 24 hours
[2017-01-16] MEDS: amLODIPine 5 MG TAB PO SCH (21:00)
[2017-01-16] MEDS: METOPROLOL TARTRATE 25 MG TAB PO SCH (21:01)
[2017-01-17] MEDS: NITROGLYCERIN OINT 1 INCH/GM PACKET TOPICAL SCH ×3 (04:30→13:13)
[2017-01-17 05:45] LABS: Mean Platelet Volume 8.1
[2017-01-17] MEDS: LEVOTHYROXINE 50 MCG TAB PO SCH (06:53)
--- NOTE | 2017-01-17 07:15 | PCN ---
CARDIAC CATHETERIZATION: Mr. Ray is a 61-year-old gentleman who was admitted with chest pain. Patient had a positive cardiac enzymes. In view of that, the patient was advised cardiac catheterization. Patient initially had a CT angiogram done to rule out any dissection as the patient's aortic root was dilated. There was no evidence of any aortic dissection. The right groin was prepped and draped in the usual manner and the skin was infiltrated with 2% Xylocaine. The right femoral artery was entered using Seldinger technique and #6 Setswana sheath was placed in. Selective coronary angiogram was then performed in multiple projections and left ventricular pressures were obtained. Patient tolerated the procedure well. Selective coronary angiography, left main coronary artery is normally patent. LAD is a good caliber blood vessel and proximally eccentric hazy-looking and 90% stenosis in the LAD. The first diag or septal branch which has a separate lesion of about 60% to 70%. Circumflex coronary artery is normal. Left ventricular end-diastolic pressure is 16 to 18 mmHg prior to angiography. No gradient is noted across the aortic valve and sedation time used was 17 minutes. This study shows 90% hazy-looking lesion in the proximal LAD. ( ) at its bifurcation into either septal or diagonal branch. The pressure is mildly elevated. The films were reviewed with Dr. Roman and we will proceed with the stent to the LAD. MITCH
[2017-01-17] MEDS: ASCORBIC ACID 500 MG TAB PO SCH (09:09)
[2017-01-17] MEDS: ASPIRIN 81 MG CHEW PO SCH (09:09)
[2017-01-17] MEDS: ATORVASTATIN 80 MG TAB PO SCH (09:09)
[2017-01-17] MEDS: CITALOPRAM HYDROBROMIDE 20 MG TAB PO SCH (09:09)
[2017-01-17] MEDS: LITHIUM CARBONATE 300 MG CAP PO SCH (09:10)
[2017-01-17] MEDS: LISINOPRIL 20 MG TAB PO SCH (09:10)
[2017-01-17] MEDS: ETODOLAC 200 MG CAPSULE PO SCH (09:10)
[2017-01-17] MEDS: METOPROLOL TARTRATE 25 MG TAB PO SCH (09:11)
[2017-01-17] MEDS: TICAGRELOR 90 MG TAB PO SCH (09:11)
[2017-01-17 10:57] VITALS: TEMP 98.1
[2017-01-17 13:07] VITALS: BP 154/100; PULSE 67; RESP 18
--- NOTE | 2017-01-17 14:34 | P.DS ---
Providers Date of admission: 01/15/17 10:35 Attending physician: Cezar Webster Consults: 01/14/17 19:03 Consult Physician Urgent Consulting Provider: Sampson Ramries Consult Reason/Comments: ua Do you want consulting provider notified?: Yes 01/15/17 12:39 Consult Physician Routine Consulting Provider: [facility] Consult Reason/Comments: Post Interventional patient Do you want consulting provider notified?: Already Contacted Primary care physician: Cezar Webster this is dictation on discharge summary by Dr. Eleanor Goodrich [facility] date of service 01/17/2017. Date of admission 01/14/2017 Date of discharge 01/17/2017 Final diagnosis: #1 STEMI AK, with elevated troponin, acute chest pain substernal with radiation to the left arm associated with this patient and weakness. #2 history of previous stroke was on Aggrenox with affected affected vision on the left eye. #3 hyper lipidemia. #4 hypertension with hypertensive heart disease. With the EKG no acute ST segment elevation. #5 cardiac cath done by Dr. VC russell with the stenosis at the bifurcation of the LAD. #[address] Sanchez did us patient of atheromatous plaque as well as placement of the stent. Patient started on beta severo and NOAM inhibitor and dual anticoagulation for his stent followed by Dr. Sanchez. #7 history of depression and revisit/anxiety/bipolar. On calcium carbonate treated by Dr. Peters psychiatrist. Diet low-salt cardiac diet. Consultation: #1 Haydee George VC., Daniel legal recovery specialist. #2 Dr. Tariq Dumont follow the patient with the admission in my temporary absence from the admission date two fourth january. Discharge by Dr. Webster. Presentation to the emergency room chest pain substernal pressure after he left total S[place] at home with the feeling of substernal pain stated that he never had this feeling before and radiated to the left arm with respiration and cold sweats. Brought to the emergency room by his stepdaughter. Hospital course: Patient has seen in the emergency room and consultation with the legal recovery specialist as patient found to have no any no acute EKG changes however his troponin was markedly elevated patient started on the protocol and the cardiology interventional as well as legal recovery specialist on-call did the cardiac cath followed by percutaneous angioplasty and stent placement. Patient was stabilized as well as a started on beta severo and NOAM inhibitor was continued as well as and start. Patient was started on beta severo and was plan to go home yesterday however because of the use of the beta severo and the monitoring needed and delayed the cardiology of the discharge and patient currently stable no chest pain no shortness of breath and no dizziness ambulatory and the cleared him for discharge today. Vital sign on discharge was stable. Knxy-hi-lkem examination: HEENT: Head was normocephalic and atraumatic pupil was equal reactive he had decreased vision in the left eye with a history of stroke oropharynx natural teeth no dizziness no headache no blurred vision at this time. Neck supple no JVD no thyromegaly no lymphadenopathy trachea midline. Chest was clear auscultation percussion no wheezes no rhonchi's. Heart regular sinus rhythm no dysrhythmia. Abdomen: Soft positive bowel sounds no organomegaly enlargement. Extremities: No edema. Pulses bilateral ambulatory with good perfusion. Psychiatric and neurological he stable. Assessment patient stable general condition, cleared from the cardiology for discharge, they give him a prescription for his activities and work return was a light work. And adjusted his medication. Plan: Discharge patient today and follow-up with the cardiology, and follow-up with Dr. Rich in 3-5 days next week i. Plan - Discharge Summary New Discharge Prescriptions: New Ticagrelor [Brilinta] 90 mg PO BID #60 tab Aspirin 81 mg PO DAILY #30 Atorvastatin [Lipitor] 80 mg PO DAILY #30 tab Metoprolol Tartrate [Lopressor] 25 mg PO BID #60 tab Continue amLODIPine [Norvasc] 5 mg PO HS Lisinopril [Zestril] 20 mg PO BID No Action Atorvastatin [Lipitor] 20 mg PO HS Ascorbic Acid [Vitamin C] 1,000 mg PO DAILY Levothyroxine Sodium [Synthroid] 50 mcg PO DAILY Dipyridamole-Aspirin 200-25 mg [Aggrenox] 1 cap PO BID Citalopram Hydrobromide [CeleXA] 20 mg PO DAILY Diclofenac Potassium [Cataflam] 50 mg PO BID [place] Carbonate [[place] Carbonate ER] 600 mg PO BID Discharge Medication List Ascorbic Acid [Vitamin C] 1,000 mg PO DAILY 12/16/14 [History] Atorvastatin [Lipitor] 20 mg PO HS 12/16/14 [History] Dipyridamole-Aspirin 200-25 mg [Aggrenox] 1 cap PO BID 12/16/14 [History] Levothyroxine Sodium [Synthroid] 50 mcg PO DAILY 12/16/14 [History] amLODIPine [Norvasc] 5 mg PO HS 12/16/14 [History] Citalopram Hydrobromide [CeleXA] 20 mg PO DAILY 01/14/17 [History] Diclofenac Potassium [Cataflam] 50 mg PO BID 01/14/17 [History] Lisinopril [Zestril] 20 mg PO BID 01/14/17 [History] [place] Carbonate [[place] Carbonate ER] 600 mg PO BID 01/14/17 [History] Aspirin 81 mg PO DAILY #30 01/17/17 [Rx] Atorvastatin [Lipitor] 80 mg PO DAILY #30 tab 01/17/17 [Rx] Metoprolol Tartrate [Lopressor] 25 mg PO BID #60 tab 01/17/17 [Rx] Ticagrelor [Brilinta] 90 mg PO BID #60 tab 01/17/17 [Rx] Follow up Appointment(s)/Referral(s): Janene Alberto MD [STAFF PHYSICIAN] - 1 Week (OFFICES ARE CLOSED AT THIS TIME PLEASE CALL TO MAKE AN APPOINTMENT.) Cezra Webster MD [Primary Care Provider] - 1-2 days (OFFICES ARE CLOSED AT THIS TIME PLEASE CALL TO MAKE AN APPOINTMENT.) Patient Instructions/Handouts: Myocardial Infarction (DC), Chest Pain (DC), Cardiac Rehabilitation (DC), Safe Use of Anticoagulants (DC), Heart Catheterization (DC)
--- NOTE | 2017-01-17 14:44 | P.PN ---
Subjective Principal diagnosis: Non-STEMI This is 7-year-old gentleman who presented to the hospital with a non- ST elevation myocardial infarction. Patient underwent successful stenting of the proximal LAD. He was seen and examined this morning, denies any chest pain or difficulty in breathing. He has been up ambulating without any difficulty. Blood pressure this morning 120/60 with a heart rate in the 60s. Objective - Vital Signs Vital signs: Vital Signs Temp 98.1 F 01/17/17 08:45 Pulse 67 01/17/17 11:45 Resp 18 01/17/17 11:45 BP 154/100 01/17/17 11:45 Pulse Ox 97 01/17/17 11:45 Intake & Output 01/16/17 01/17/17 01/17/17 18:59 06:59 18:59 Intake Total 805 236 Output Total 675 Balance 130 236 Weight 84.7 kg Intake: Oral 805 236 Output: Urine 675 Other: Voiding Method Toilet Toilet Toilet # Voids 1 2 1 # Bowel Movements 1 - Exam PHYSICAL EXAMINATION: HEENT: Head is atraumatic, normocephalic. Pupils equal, round. Neck is supple. There is no elevated jugular venous pressure. HEART EXAMINATION: Heart S1, S2 normal. No murmur or gallop heard. CHEST EXAMINATION: Lungs are clear to auscultation and precussion. No chest wall tenderness is noted on palpation or with deep breathing. ABDOMEN: Soft, nontender. Bowel sounds are heard. No organomegaly noted. EXTREMITIES: 2+ peripheral pulses with no evidence of peripheral edema and no calf tenderness noted. NEUROLOGIC patient is awake, alert and oriented -3. . - Labs CBC & Chem 7: 01/17/17 05:27 01/16/17 06:13 Assessment and Plan Plan: Assessment and plan #1 non-ST elevation myocardial infarction, status post angioplasty with stenting of the LAD. #2 history of hypertension #3 history of hyperlipidemia #4 strong family history of premature coronary artery disease #5 bipolar disorder #6 Prior CVA Plan He may be able to be discharged home today. He'll be discharged on Norvasc 5 mg daily, aspirin 81 mg daily, Lipitor 80 mg daily, lisinopril at 20 mg one tablet by mouth twice a day, metoprolol tartrate 25 mg one tablet by mouth twice a day, Ritalin 1090 mg one tablet by mouth twice a day and sublingual nitroglycerin as needed for chest pain. A follow-up appointment will be made with Dr. VC Alberto in the office post discharge. He has been provided prescriptions for all the above medications. DNP note has been reviewed, I agree with a documented findings and plan of care. Patient was seen and examined.
== END 2017-01-17 17:06 | disposition home or self-care (01) | DRG 247 ==
LOC: EC 16:23 → 3OBS 19:03 → 6SEL 01-15 00:49 → OBSVTOIN 01-15 10:35
PROVIDERS: ADMIT Internal Medicine; ATTEND Internal Medicine
PROC: B2111ZZ Fluoroscopy of Multiple Coronary Arteries using Low Osmolar Contrast (ICD-10-PCS; 2017-01-15)
PROC: B2151ZZ Fluoroscopy of Left Heart using Low Osmolar Contrast (ICD-10-PCS; 2017-01-15)
PROC: 027034Z Dilation of Coronary Artery, One Artery with Drug-eluting Intraluminal Device, Percutaneous Approach (ICD-10-PCS; principal; 2017-01-15 11:10)
PROC: 02C03ZZ Extirpation of Matter from Coronary Artery, One Artery, Percutaneous Approach (ICD-10-PCS; 2017-01-15 11:10)
PROC: 4A023N7 Measurement of Cardiac Sampling and Pressure, Left Heart, Percutaneous Approach (ICD-10-PCS; 2017-01-15 11:10)
DX: I21.4 Non-ST elevation (NSTEMI) myocardial infarction (principal); I11.9 Hypertensive heart disease without heart failure; E78.5 Hyperlipidemia, unspecified; I25.110 Atherosclerotic heart disease of native coronary artery with unstable angina pectoris; E03.9 Hypothyroidism, unspecified; I77.812 Thoracoabdominal aortic ectasia; I69.398 Other sequelae of cerebral infarction; H53.8 Other visual disturbances; F31.9 Bipolar disorder, unspecified; R53.1 Weakness; F41.9 Anxiety disorder, unspecified; Z87.891 Personal history of nicotine dependence; Z79.899 Other long term (current) drug therapy; Z82.49 Family history of ischemic heart disease and other diseases of the circulatory system; Z88.0 Allergy status to penicillin; Z79.02 Long term (current) use of antithrombotics/antiplatelets; Z63.6 Dependent relative needing care at home
CPT/HCPCS: 36415; 71020; 71275; 80048; 80053; 80061; 82550; 82553; 83735; 84484; 85025; 85049; 85610; 85730; 93005; 93306; 93458; 93799

== ENCOUNTER → 2017-02-01 | Outpatient (CLI) | payer BC | END | disposition home or self-care (01) | LOC: LABWHC1 16:08 | PROVIDERS: ATTEND Psychiatry & Neurology Psychiatry | DX: F31.60 Bipolar disorder, current episode mixed, unspecified (principal) | CPT/HCPCS: 36415; 80178 ==

== ENCOUNTER 2017-02-04 10:29 | Emergency (ER) | payer BC ==
--- NOTE | 2017-02-04 11:17 | ED ---
General Adult HPI - General Chief complaint: Recheck/Abnormal Lab/Rx Stated complaint: NEEDS LEVELS CHECKED Time Seen by Provider: 02/04/17 10:46 Source: patient, RN notes reviewed Mode of arrival: ambulatory Limitations: no limitations - History of Present Illness Initial comments: 61-year-old male presents emergency Department chief complaint of abnormal lithium level. Patient states he was called on and was advised to come emergency from to have his lithium level checked. Patient states that he never came states he came today and just needs a check. Patient states he takes 12 arm milligrams of lithium. Patient states he states this for several years. Patient did stop taking her when he was called. Patient denies chest pain, shortness breath, headache, dizziness, tenderness, nausea, vomiting, diarrhea or constipation. - Related Data Home Medications Medication Instructions Recorded Confirmed Ascorbic Acid [Vitamin C] 1,000 mg PO DAILY 12/16/14 01/14/17 Atorvastatin [Lipitor] 20 mg PO HS 12/16/14 01/14/17 Dipyridamole-Aspirin 200-25 mg 1 cap PO BID 12/16/14 01/14/17 [Aggrenox] Levothyroxine Sodium [Synthroid] 50 mcg PO DAILY 12/16/14 01/14/17 amLODIPine [Norvasc] 5 mg PO HS 12/16/14 01/14/17 Citalopram Hydrobromide [CeleXA] 20 mg PO DAILY 01/14/17 01/14/17 Diclofenac Potassium [Cataflam] 50 mg PO BID 01/14/17 01/14/17 Lisinopril [Zestril] 20 mg PO BID 01/14/17 01/14/17 [place] Carbonate [[place] 600 mg PO BID 01/14/17 01/14/17 Carbonate ER] Previous Rx's Medication Instructions Recorded Aspirin 81 mg PO DAILY #30 01/17/17 Atorvastatin [Lipitor] 80 mg PO DAILY #30 tab 01/17/17 Metoprolol Tartrate [Lopressor] 25 mg PO BID #60 tab 01/17/17 Ticagrelor [Brilinta] 90 mg PO BID #60 tab 01/17/17 Allergies Allergy/AdvReac Type Severity Reaction Status Date / Time Penicillins Allergy Rash/Hives Verified 01/14/17 20:27 Review of Systems ROS Statement: Those systems with pertinent positive or pertinent negative responses have been documented in the HPI. ROS Other: All systems not noted in ROS Statement are negative. Past Medical History Past Medical History: CVA/TIA, Hyperlipidemia, Hypertension, Myocardial Infarction ([place]), Thyroid Disorder Additional Past Medical History / Comment(s): Stroke 2010 - left eye peripheral and centre vision, enlarged thyroid mi 01/15/2017 History of Any Multi-Drug Resistant Organisms: None Reported Past Surgical History: Heart Catheterization With Stent, Tonsillectomy Additional Past Surgical History / Comment(s): hemorrhoidectomy, double inguinal hernia repair Past Anesthesia/Blood Transfusion Reactions: No Reported Reaction Past Psychological History: Bipolar, Depression Smoking Status: Former smoker Past Alcohol Use History: None Reported Past Drug Use History: None Reported - Past Family History Father History Unknown: Yes General Exam Limitations: no limitations General appearance: alert, in no apparent distress Head exam: Present: atraumatic, normocephalic, normal inspection Neck exam: Present: normal inspection, full ROM. Absent: tenderness, meningismus, lymphadenopathy Respiratory exam: Present: normal lung sounds bilaterally. Absent: respiratory distress, wheezes, rales, rhonchi, stridor Cardiovascular Exam: Present: regular rate, normal rhythm, normal heart sounds. Absent: systolic murmur, diastolic murmur, rubs, gallop, clicks Neurological exam: Present: alert, oriented X3, CN II-XII intact Psychiatric exam: Present: normal affect, normal mood Skin exam: Present: warm, dry, intact, normal color. Absent: rash Course Vital Signs 02/04/17 02/04/17 10:40 11:26 Temperature 97.2 F L 99.0 F Pulse Rate 63 66 Respiratory 18 17 Rate Blood Pressure 123/77 130/72 O2 Sat by Pulse 97 97 Oximetry Medical Decision Making - Medical Decision Making 7-year-old male presented for lithium level checked. Patient's level is 0.9 and therapeutic range. Patient be discharged return parameters were discussed. - Lab Data Lab Results 02/04/17 Range/Units 11:09 [place] 0.9 mmol/L Disposition Clinical Impression: Encounter for therapeutic drug level monitoring Disposition: HOME SELF-CARE Condition: Stable Instructions: [place] (By mouth) Additional Instructions: Please return to the Emergency Department if symptoms worsen or any other concerns. Referrals: Cezar Webster MD [Primary Care Provider] - 1-2 days Time of Disposition: :48
[2017-02-04 12:12] VITALS: BP 116/71; PULSE 64; RESP 19; TEMP 97.2
== END 2017-02-04 12:16 | disposition home or self-care (01) ==
LOC: EC 10:29
DX: Z51.81 Encounter for therapeutic drug level monitoring (principal); R79.89 Other specified abnormal findings of blood chemistry; E78.5 Hyperlipidemia, unspecified; I10 Essential (primary) hypertension; E07.89 Other specified disorders of thyroid; F31.9 Bipolar disorder, unspecified; I25.2 Old myocardial infarction; Z87.891 Personal history of nicotine dependence; Z79.1 Long term (current) use of non-steroidal anti-inflammatories (NSAID); Z79.82 Long term (current) use of aspirin; Z79.899 Other long term (current) drug therapy; Z88.0 Allergy status to penicillin; Z86.73 Personal history of transient ischemic attack (TIA), and cerebral infarction without residual deficits
CPT/HCPCS: 36415; 80178; 99283

== ENCOUNTER 2017-02-08 11:27 | Emergency (ER) | payer BC ==
[2017-02-08] MEDS ORDERED: SODIUM CHLORIDE 0.9% 500 ML IV STA (11:29)
[2017-02-08] MEDS ORDERED: SODIUM CHLORIDE 0.9% 1,000 ML IV STA (11:29)
[2017-02-08 11:53] LABS: Basophils # (A) 0.1 k/uL (0-0.2); Basophils % (A) 1 %; CH 30.8; CHCM 33.6; Eosinophils # (A) 0.3 k/uL (0-0.7); Eosinophils % (A) 3 %; HDW 2.52; Luc % (Auto) 2; Lymphocytes # (A) 1.9 k/uL (1.0-4.8); Lymphocytes % (A) 22 %; MCH 31.4 pg (25.0-35.0); MCHC 34.1 g/dL (31.0-37.0); MCV 91.9 fL (80.0-100.0); Mean Platelet Volume 8.9; Monocytes # (A) 0.5 k/uL (0-1.0); Monocytes % (A) 5 %; Neutrophils # (A) 5.8 k/uL (1.3-7.7); Neutrophils % (A) 67 %; RBC 4.46 m/uL (4.30-5.90); RDW 13.3 % (11.5-15.5); WBC 8.7 k/uL (3.8-10.6)
--- NOTE | 2017-02-08 11:55 | ED ---
General Adult HPI - General Chief complaint: Dizziness Stated complaint: Dizziness Time Seen by Provider: 02/08/17 11:29 Source: patient, RN notes reviewed, old records reviewed Mode of arrival: EMS Limitations: no limitations - History of Present Illness Initial comments: This is a 61-year-old male to the ER for evaluation. This patient presents for evaluation of dizziness chest pain or cough. No fevers. History of heart disease. Patient has history of recent stent placed, recent hospitalization. Patient states he was just getting back to work today and had this episode. Denies any other complaints. No recent travel history or sick contacts - Related Data Home Medications Medication Instructions Recorded Confirmed Ascorbic Acid [Vitamin C] 1,000 mg PO DAILY 12/16/14 02/08/17 Levothyroxine Sodium [Synthroid] 50 mcg PO DAILY 12/16/14 02/08/17 amLODIPine [Norvasc] 5 mg PO HS 12/16/14 02/08/17 Citalopram Hydrobromide [CeleXA] 20 mg PO DAILY 01/14/17 02/08/17 Diclofenac Potassium [Cataflam] 50 mg PO BID 01/14/17 02/08/17 Lisinopril [Zestril] 20 mg PO BID 01/14/17 02/08/17 [place] Carbonate [[place] 300 mg PO BID 01/14/17 02/08/17 Carbonate ER] Previous Rx's Medication Instructions Recorded Aspirin 81 mg PO DAILY #30 01/17/17 Atorvastatin [Lipitor] 80 mg PO DAILY #30 tab 01/17/17 Metoprolol Tartrate [Lopressor] 25 mg PO BID #60 tab 01/17/17 Ticagrelor [Brilinta] 90 mg PO BID #60 tab 01/17/17 Allergies Allergy/AdvReac Type Severity Reaction Status Date / Time Penicillins Allergy Rash/Hives Verified 02/08/17 11:43 Review of Systems ROS Statement: Those systems with pertinent positive or pertinent negative responses have been documented in the HPI. ROS Other: All systems not noted in ROS Statement are negative. Past Medical History Past Medical History: CVA/TIA, Hyperlipidemia, Hypertension, Myocardial Infarction ([place]), Thyroid Disorder Additional Past Medical History / Comment(s): Stroke 2010 - left eye peripheral and centre vision, enlarged thyroid mi 01/15/2017 History of Any Multi-Drug Resistant Organisms: None Reported Past Surgical History: Heart Catheterization With Stent, Tonsillectomy Additional Past Surgical History / Comment(s): hemorrhoidectomy, double inguinal hernia repair Past Anesthesia/Blood Transfusion Reactions: No Reported Reaction Past Psychological History: Bipolar, Depression Smoking Status: Former smoker Past Alcohol Use History: None Reported Past Drug Use History: None Reported - Past Family History Father History Unknown: Yes General Exam Limitations: no limitations General appearance: alert, in no apparent distress, anxious Head exam: Present: atraumatic, normocephalic, normal inspection Eye exam: Present: normal appearance, PERRL, EOMI. Absent: scleral icterus, conjunctival injection, periorbital swelling ENT exam: Present: normal exam, mucous membranes moist Neck exam: Present: normal inspection. Absent: tenderness, meningismus, lymphadenopathy Respiratory exam: Present: normal lung sounds bilaterally. Absent: respiratory distress, wheezes, rales, rhonchi, stridor Cardiovascular Exam: Present: regular rate, normal rhythm, normal heart sounds. Absent: systolic murmur, diastolic murmur, rubs, gallop, clicks GI/Abdominal exam: Present: soft, normal bowel sounds. Absent: distended, tenderness, guarding, rebound, rigid Extremities exam: Present: normal inspection, full ROM, normal capillary refill. Absent: tenderness, pedal edema, joint swelling, calf tenderness Back exam: Present: normal inspection Neurological exam: Present: alert, oriented X3, CN II-XII intact Psychiatric exam: Present: normal affect, normal mood Skin exam: Present: warm, dry, intact, normal color. Absent: rash Course Vital Signs 02/08/17 02/08/17 11:30 12:23 Temperature 97.0 F L Pulse Rate 56 L 67 Respiratory 18 18 Rate Blood Pressure 110/64 112/71 O2 Sat by Pulse 94 L 96 Oximetry - Reevaluation(s) Reevaluation #1: 02/08/17 14:01 Patient denies chest pain at this time, but does admit to diaphoresis and chest pain earlier EKG Findings - EKG Comments: EKG Findings:: EKG shows normal sinus bradycardia rate of 58, DC 200, QRS 112, QTC 431 Medical Decision Making - Medical Decision Making 61 male the ER for evaluation. Patient presents to ER today for evaluation regarding chest pain, mild cough and shortness of breath. Positive pneumonia, recent hospitalization, patient also had a severe episode of dizziness, be admitted for IV resuscitation hemodynamic monitoring recurrent following of cardiac troponins and treatment for pneumonia - Lab Data Result diagrams: 02/08/17 11:30 02/08/17 11:30 Lab Results 02/08/17 02/08/17 02/08/17 Range/Units 11:30 11:30 11:30 WBC 8.7 (3.8-10.6) k/uL RBC 4.46 (4.30-5.90) m/uL Hgb 14.0 (13.0-17.5) gm/dL Hct 41.0 (39.0-53.0) % MCV 91.9 (80.0-100.0) fL MCH 31.4 (25.0-35.0) pg MCHC 34.1 (31.0-37.0) g/dL RDW 13.3 (11.5-15.5) % Plt Count 191 (150-450) k/uL Neutrophils % 67 % Lymphocytes % 22 % Monocytes % 5 % Eosinophils % 3 % Basophils % 1 % Neutrophils # 5.8 (1.3-7.7) k/uL Lymphocytes # 1.9 (1.0-4.8) k/uL Monocytes # 0.5 (0-1.0) k/uL Eosinophils # 0.3 (0-0.7) k/uL Basophils # 0.1 (0-0.2) k/uL PT (9.0-12.0) sec INR (<1.2) APTT (22.0-30.0) sec Sodium 140 (137-145) mmol/L Potassium 4.7 (3.5-5.1) mmol/L Chloride 110 H (98-107) mmol/L Carbon Dioxide 19 L (22-30) mmol/L Anion Gap 11 mmol/L BUN 24 H (9-20) mg/dL Creatinine 1.20 (0.66-1.25) mg/dL Est GFR (MDRD) Af Amer >60 (>60 ml/min/1.73 sqM) Est GFR (MDRD) Non-Af >60 (>60 ml/min/1.73 sqM) Glucose 126 H (74-99) mg/dL Calcium 9.3 (8.4-10.2) mg/dL Phosphorus 4.0 (2.5-4.5) mg/dL Magnesium 1.8 (1.6-2.3) mg/dL Total Bilirubin 0.3 (0.2-1.3) mg/dL AST 42 (17-59) U/L ALT 104 H (21-72) U/L Alkaline Phosphatase 88 (38-126) U/L Total Creatine Kinase 109 (55-170) U/L CK-MB (CK-2) 1.5 (0.0-2.4) ng/mL CK-MB (CK-2) Rel Index 1.4 Troponin I <0.012 (0.000-0.034) ng/mL Total Protein 6.1 L (6.3-8.2) g/dL Albumin 3.7 (3.5-5.0) g/dL 02/08/17 Range/Units 11:30 WBC (3.8-10.6) k/uL RBC (4.30-5.90) m/uL Hgb (13.0-17.5) gm/dL Hct (39.0-53.0) % MCV (80.0-100.0) fL MCH (25.0-35.0) pg MCHC (31.0-37.0) g/dL RDW (11.5-15.5) % Plt Count (150-450) k/uL Neutrophils % % Lymphocytes % % Monocytes % % Eosinophils % % Basophils % % Neutrophils # (1.3-7.7) k/uL Lymphocytes # (1.0-4.8) k/uL Monocytes # (0-1.0) k/uL Eosinophils # (0-0.7) k/uL Basophils # (0-0.2) k/uL PT 10.1 (9.0-12.0) sec INR 1.0 (<1.2) APTT 20.6 L (22.0-30.0) sec Sodium (137-145) mmol/L Potassium (3.5-5.1) mmol/L Chloride (98-107) mmol/L Carbon Dioxide (22-30) mmol/L Anion Gap mmol/L BUN (9-20) mg/dL Creatinine (0.66-1.25) mg/dL Est GFR (MDRD) Af Amer (>60 ml/min/1.73 sqM) Est GFR (MDRD) Non-Af (>60 ml/min/1.73 sqM) Glucose (74-99) mg/dL Calcium (8.4-10.2) mg/dL Phosphorus (2.5-4.5) mg/dL Magnesium (1.6-2.3) mg/dL Total Bilirubin (0.2-1.3) mg/dL AST (17-59) U/L ALT (21-72) U/L Alkaline Phosphatase (38-126) U/L Total Creatine Kinase (55-170) U/L CK-MB (CK-2) (0.0-2.4) ng/mL CK-MB (CK-2) Rel Index Troponin I (0.000-0.034) ng/mL Total Protein (6.3-8.2) g/dL Albumin (3.5-5.0) g/dL - Radiology Data Radiology results: report reviewed (Chest x-ray positive for pneumonia), image reviewed Critical Care Time Critical Care Time: Yes Total Critical Care Time: 31 Disposition Clinical Impression: Nosocomial pneumonia, Dizziness, Chest pain Disposition: ADMITTED IP TO THIS HOSP Condition: Fair Referrals: Cezar Webster MD [Primary Care Provider] - 1-2 days
[2017-02-08 12:07] LABS: ALT 104 U/L (21-72); AST 42 U/L (17-59); Alkaline Phosphatase 88 U/L (38-126); Anion Gap 11 mmol/L; Blood Urea Nitrogen 24 mg/dL (9-20); Calcium 9.3 mg/dL (8.4-10.2); Carbon Dioxide 19 mmol/L (22-30); Chloride 110 mmol/L (98-107); Glucose 126 mg/dL (74-99); Magnesium 1.8 mg/dL (1.6-2.3); Non-African American GFR(MDRD) >60 (>60 ml/min/1.73 sqM); Potassium 4.7 mmol/L (3.5-5.1); Sodium 140 mmol/L (137-145); Total Bilirubin 0.3 mg/dL (0.2-1.3); Total Protein 6.1 g/dL (6.3-8.2)
[2017-02-08 12:12] LABS: Prothrombin Time 10.1 sec (9.0-12.0)
[2017-02-08 12:13] LABS: Creatine Kinase 109 U/L (55-170)
[2017-02-08 12:24] LABS: Partial Thromboplastin Time 20.6 sec (22.0-30.0)
[2017-02-08 12:27] LABS: Creatine Kinase MB 1.5 ng/mL (0.0-2.4); Troponin I <0.012 ng/mL (0.000-0.034)
--- NOTE | 2017-02-08 13:17 | XR ---
EXAMINATION TYPE: XR chest 2V DATE OF EXAM: 02/08/2017 COMPARISON: NONE HISTORY: Shortness of breath TECHNIQUE: Frontal and lateral views of the chest are obtained. FINDINGS: Scattered senescent parenchymal changes noted. Hyperinflation compatible with COPD. Mild increased density right lower lobe may reflect atelectasis or developing infiltrate. Correlate c linically. Heart size is stable. Mediastinal structures are stable and grossly unremarkable. No evidence for hilar prominence. Degenerative changes dorsal spine. IMPRESSION: 1. Mild increased density right lower lobe may reflect atelectasis or developing infiltrate. Correlat e clinically.
[2017-02-08] MEDS ORDERED: PNEUMONIA PROTOCOL UTILIZED 1 EACH MISC PO PRN (13:53)
[2017-02-08] MEDS ORDERED: MORPHINE SULFATE 4 MG/ML SYRINGE IV PRN (13:53)
[2017-02-08] MEDS ORDERED: HEPARIN SODIUM,PORCINE 5,000 UNIT/ML 1 ML VIAL IV PRN (13:53)
[2017-02-08] MEDS ORDERED: LEVOFLOXACIN 750MG-D5W PMX 750 MG in DEXTROSE/WATER 1 150ML.BAG IVPB STA (13:53)
[2017-02-08] MEDS ORDERED: ASPIRIN 81 MG CHEW PO STA (13:53)
[2017-02-08] MEDS ORDERED: PIPERACILLIN-TAZOBACTAM 3.375 GM in DEXTROSE/WATER 1 50ML.BAG IVPB STA (13:53)
[2017-02-08] MEDS ORDERED: HEPARIN SODIUM,PORCINE 5,000 UNIT/ML 1 ML VIAL IV ONE (13:53)
[2017-02-08] MEDS ORDERED: NITROGLYCERIN SL TABS 0.4 MG TAB SUBLINGUAL PRN (13:53)
[2017-02-08] MEDS ORDERED: HEPARIN SODIUM,PORCINE/D5W PMX 25,000 UNIT in DEXTROSE/WATER 1 500ML.BAG IV SCH (14:00)
[2017-02-08] MEDS ORDERED: SODIUM CHLORIDE 0.9% 1,000 ML IV SCH (14:00)
[2017-02-08] MEDS ORDERED: LEVOFLOXACIN 750 MG TAB PO STA (14:10)
[2017-02-08 14:38] VITALS: BP 118/74; PULSE 66; RESP 20; TEMP 98.2
[2017-02-08] MEDS ORDERED: PIPERACILLIN-TAZOBACTAM 3.375 GM in DEXTROSE/WATER 1 50ML.BAG IVPB SCH (16:00)
[2017-02-08] MEDS ORDERED: IPRATROPIUM-ALBUTEROL 3 ML NEB INHALATION SCH (16:00)
[2017-02-09] MEDS ORDERED: ASPIRIN 325 MG TAB PO SCH (09:00)
[2017-02-09] MEDS ORDERED: LEVOFLOXACIN 750MG-D5W PMX 750 MG in DEXTROSE/WATER 1 150ML.BAG IVPB SCH (13:54)
== END 2017-02-08 14:44 | disposition other institution (70) ==
LOC: EC 11:27 → 3OBS 13:53 → UNDOADMOB 13:53 → EC 14:44
DX: J18.9 Pneumonia, unspecified organism (principal); R42 Dizziness and giddiness; I10 Essential (primary) hypertension; E07.89 Other specified disorders of thyroid; F31.9 Bipolar disorder, unspecified; Z87.891 Personal history of nicotine dependence; Z79.1 Long term (current) use of non-steroidal anti-inflammatories (NSAID); Z79.82 Long term (current) use of aspirin; Z79.899 Other long term (current) drug therapy; Z88.0 Allergy status to penicillin; Z95.5 Presence of coronary angioplasty implant and graft; Y95 Nosocomial condition
CPT/HCPCS: 36415; 71020; 80053; 82550; 82553; 83735; 84100; 84484; 85025; 85610; 85730; 93005; 96360; 96361; 99291

== ENCOUNTER → 2017-02-16 | Outpatient (CLI) | payer BC ==
[2017-02-16 16:13] LABS: CH 31.2; CHCM 32.7; HCT 42.2 % (39.0-53.0); HDW 2.48; HGB 13.8 gm/dL (13.0-17.5); MCH 31.5 pg (25.0-35.0); MCHC 32.8 g/dL (31.0-37.0); Mean Platelet Volume 9.5; RBC 4.39 m/uL (4.30-5.90); RDW 14.4 % (11.5-15.5); WBC 7.6 k/uL (3.8-10.6)
--- NOTE | 2017-02-16 16:20 | XR ---
EXAMINATION TYPE: XR chest 2V DATE OF EXAM: 02/16/2017 COMPARISON: Prior chest x-ray 02/08/2017 HISTORY: Pneumonia, J 18.9 TECHNIQUE: Frontal and lateral views of the chest are obtained. FINDINGS: There is no focal air space opacity, pleural effusion, or pneumothorax seen. The cardiac silhouette size is within normal limits. There is improved aeration as compared to prior exam. Promi nent lung volume with flattening of the hemidiaphragms may be indicative of underlying COPD. The osse ous structures are intact. IMPRESSION: No acute cardiopulmonary process.
[2017-02-16 16:42] LABS: Anion Gap 9 mmol/L; Blood Urea Nitrogen 35 mg/dL (9-20); Calcium 9.7 mg/dL (8.4-10.2); Carbon Dioxide 23 mmol/L (22-30); Chloride 113 mmol/L (98-107); Glucose 102 mg/dL (74-99); Lithium 1.2 mmol/L; Non-African American GFR(MDRD) 52 (>60 ml/min/1.73 sqM); Potassium 4.3 mmol/L (3.5-5.1); Sodium 145 mmol/L (137-145)
== END | disposition home or self-care (01) ==
LOC: LABWHC1 15:45
PROVIDERS: ATTEND Psychiatry & Neurology Psychiatry
DX: J12.9 Viral pneumonia, unspecified (principal); F31.60 Bipolar disorder, current episode mixed, unspecified; Z79.899 Other long term (current) drug therapy
CPT/HCPCS: 36415; 71020; 80048; 80178; 85027

== ENCOUNTER → 2017-03-08 | Outpatient (CLI) | payer BC ==
[2017-03-08 17:23] LABS: Anion Gap 8 mmol/L; Blood Urea Nitrogen 36 mg/dL (9-20); Calcium 9.5 mg/dL (8.4-10.2); Carbon Dioxide 23 mmol/L (22-30); Chloride 108 mmol/L (98-107); Glucose 88 mg/dL (74-99); Lithium 0.8 mmol/L; Non-African American GFR(MDRD) >60 (>60 ml/min/1.73 sqM); Potassium 4.7 mmol/L (3.5-5.1); Sodium 139 mmol/L (137-145)
== END | disposition home or self-care (01) ==
LOC: LABWHC1 16:13
PROVIDERS: ATTEND Psychiatry & Neurology Psychiatry
DX: F31.60 Bipolar disorder, current episode mixed, unspecified (principal); Z79.899 Other long term (current) drug therapy
CPT/HCPCS: 36415; 80048; 80178

== ENCOUNTER → 2017-04-04 | Outpatient (CLI) | payer BC ==
[2017-04-04 17:18] LABS: Anion Gap 12 mmol/L; Blood Urea Nitrogen 18 mg/dL (9-20); Calcium 9.5 mg/dL (8.4-10.2); Carbon Dioxide 20 mmol/L (22-30); Chloride 110 mmol/L (98-107); Glucose 89 mg/dL (74-99); Lithium 0.4 mmol/L; Non-African American GFR(MDRD) >60 (>60 ml/min/1.73 sqM); Potassium 4.3 mmol/L (3.5-5.1); Sodium 142 mmol/L (137-145)
== END | disposition home or self-care (01) ==
LOC: LABWHC1 16:34
PROVIDERS: ATTEND Psychiatry & Neurology Psychiatry
DX: F31.60 Bipolar disorder, current episode mixed, unspecified (principal); Z79.899 Other long term (current) drug therapy
CPT/HCPCS: 36415; 80048; 80178; 84439; 84443

== ENCOUNTER → 2017-08-07 | Outpatient (CLI) | payer BC ==
[2017-08-07 16:59] LABS: Anion Gap 7 mmol/L; Blood Urea Nitrogen 22 mg/dL (9-20); Calcium 9.8 mg/dL (8.4-10.2); Carbon Dioxide 29 mmol/L (22-30); Chloride 108 mmol/L (98-107); Glucose 89 mg/dL (74-99); Lithium 0.9 mmol/L; Potassium 4.8 mmol/L (3.5-5.1); Sodium 144 mmol/L (137-145)
[2017-08-07 17:16] LABS: T4, Free (Free Thyroxine) 0.87 ng/dL (0.78-2.19)
[2017-08-08 03:42] LABS: Thyroid Peroxidase Antibodies 63.9 U/mL (0.0-60.0)
== END | disposition home or self-care (01) ==
LOC: LABWHC1 16:01
PROVIDERS: ATTEND Psychiatry & Neurology Psychiatry
DX: E03.9 Hypothyroidism, unspecified (principal); J16.0 Chlamydial pneumonia; Z79.899 Other long term (current) drug therapy
CPT/HCPCS: 36415; 80048; 80178; 84439; 84443; 86376; 86800

== ENCOUNTER → 2017-09-03 | Outpatient (CLI) | payer BC ==
[2017-09-06 19:49] LABS: Testosterone, Free, LC/MS/MS 25.7 pg/mL (46.0-224.0)
== END | disposition home or self-care (01) ==
LOC: LABWHC1 16:13
PROVIDERS: ATTEND Internal Medicine
DX: E29.1 Testicular hypofunction (principal); N52.9 Male erectile dysfunction, unspecified
CPT/HCPCS: 36415; 82040; 83001; 83002; 84146; 84270; 84403

== ENCOUNTER → 2017-11-12 | Outpatient (CLI) | payer BC ==
[2017-11-12 16:20] LABS: HCT 46.5 % (39.0-53.0); HGB 14.6 gm/dL (13.0-17.5); Hypochromasia Slight; MCH 29.5 pg (25.0-35.0); MCHC 31.5 g/dL (31.0-37.0); MCV 93.8 fL (80.0-100.0); Mean Platelet Volume 8.1; Platelet Count 175 k/uL (150-450); RBC 4.95 m/uL (4.30-5.90); RDW 13.4 % (11.5-15.5)
[2017-11-12 16:38] LABS: Potassium 4.2 mmol/L (3.5-5.1)
== END ==
LOC: LABPAT 15:49
PROVIDERS: ATTEND Internal Medicine Cardiovascular Disease
DX: Z01.812 Encounter for preprocedural laboratory examination (principal); I25.10 Atherosclerotic heart disease of native coronary artery without angina pectoris
CPT/HCPCS: 36415; 80051; 82565; 84520; 85027

== ENCOUNTER 2017-11-15 09:03 | Day surgery (SDC) | payer BC ==
[2017-11-12 18:23] VITALS: BMI 31.0
[~2017-11-15 09:03] MED LIST: ALPRAZolam 0.25 MG TAB PO PRN; ALPRAZolam 0.5 MG TAB PO PRN; ASPIRIN 325 MG TAB PO STA; NITROGLYCERIN SL TABS 0.4 MG TAB SUBLINGUAL PRN; SODIUM CHLORIDE 0.9% 1,000 ML in EMPTY BAG 1 BAG IV ONE
[2017-11-15] MEDS ORDERED: ASPIRIN 81 MG ONE (09:32)
[2017-11-15 09:48] VITALS: RESP 16; TEMP 98.5
[2017-11-15] MEDS ORDERED: LIDOCAINE 2% INJ 20 MG/ML (20 ML MDV) ONE (10:19)
[2017-11-15] MEDS ORDERED: MIDAZOLAM 2 MG/2 ML VIAL ONE (10:21)
[2017-11-15] MEDS ORDERED: fentaNYL (PF) 50 MCG/ML 2 ML AMP ONE (10:21)
[2017-11-15] MEDS ORDERED: fentaNYL (PF) 50 MCG/ML 2 ML AMP IVP ONE (10:47)
[2017-11-15] MEDS ORDERED: MIDAZOLAM 2 MG/2 ML VIAL IVP ONE (10:47)
[2017-11-15] MEDS ORDERED: LIDOCAINE 2% INJ 20 MG/ML SQ ONE (10:51)
[2017-11-15] MEDS ORDERED: IOPAMIDOL-370 125ML BTL INJ ONE (11:08)
[2017-11-15] MEDS ORDERED: HYDROcodone/APAP 5-325MG 1 EACH TAB PO PRN (11:13)
[2017-11-15] MEDS ORDERED: RX INFO: IV CONTRAST WAS GIVEN 1 EACH MISC MISCELLANE PRN (11:13)
[2017-11-15] MEDS ORDERED: SODIUM CHLORIDE 0.9% 1,000 ML IV SCH (11:15)
--- NOTE | 2017-11-15 11:43 | CC ---
CARDIAC CATHETERIZATION REPORT Patient is status post stent to the LAD. Patient was seen in the office with the symptoms of exertional shortness of breath and atypical angina, underwent a stress test which showed evidence of inferior lateral ischemia. In view of that, patient was recommended to have a cardiac catheterization for definitive diagnosis. PROCEDURE: The right groin was prepped and draped in the usual manner and the skin was infiltrated with 2% Xylocaine. The right femoral artery was entered using Seldinger technique, a #6-Pashto sheath was placed in. Selective coronary angiography was then performed in multiple projections and the left ventricular pressures were obtained. Patient tolerated the procedure well and sheath was removed with good hemostasis with the use of Angio-Seal. Moderate sedation was used, total sedation time was 12 minutes. HEMODYNAMICS: Left ventricular end-diastolic pressure is 12-14 mmHg prior to angiography. No gradient is noted across the aortic valve. SELECTIVE CORONARY ANGIOGRAPHY: Left main coronary artery is normally patent. LAD is a good caliber blood vessel. Stent is patent at the site of prior stent placement. There is a small size diagonal branch. Circumflex coronary artery is normal. Right coronary artery is normal caliber blood vessel and uses a good size PDA branch of right coronary artery and its branches are normal. FINAL IMPRESSION: This study shows a patent stent in the mid LAD. Circumflex and coronary arteries are normal. RECOMMENDATION: Medical treatment. MMODL / IJN: [id number] /
[2017-11-15 15:37] VITALS: PULSE 65
[2017-11-15 16:38] VITALS: BP 141/76
== END 2017-11-15 16:38 | disposition home or self-care (01) ==
LOC: CATHCVL 09:03
PROVIDERS: ATTEND Internal Medicine Cardiovascular Disease
DX: I25.119 Atherosclerotic heart disease of native coronary artery with unspecified angina pectoris (principal); Z95.5 Presence of coronary angioplasty implant and graft
CPT/HCPCS: 93458; C1751; C1894; C1769; J2001; J2250; J3010; Q9967

== ENCOUNTER → 2017-12-08 | Outpatient (CLI) | payer BC ==
[2017-12-08 09:47] LABS: Basophils % (A) 1 %; Eosinophils # (A) 0.2 k/uL (0-0.7); Eosinophils % (A) 3 %; HCT 49.2 % (39.0-53.0); HGB 15.7 gm/dL (13.0-17.5); Lymphocytes # (A) 1.3 k/uL (1.0-4.8); Lymphocytes % (A) 19 %; MCH 29.7 pg (25.0-35.0); MCHC 31.9 g/dL (31.0-37.0); Mean Platelet Volume 8.3; Monocytes # (A) 0.5 k/uL (0-1.0); Monocytes % (A) 7 %; Neutrophils # (A) 4.9 k/uL (1.3-7.7); Neutrophils % (A) 69 %; Platelet Count 167 k/uL (150-450); RBC 5.29 m/uL (4.30-5.90); RDW 13.4 % (11.5-15.5); WBC 7.1 k/uL (3.8-10.6)
[2017-12-08 10:15] LABS: Albumin 3.7 g/dL (3.5-5.0); Calcium 9.3 mg/dL (8.4-10.2); Potassium 4.8 mmol/L (3.5-5.1); Total Bilirubin 0.3 mg/dL (0.2-1.3); Total Protein 6.1 g/dL (6.3-8.2)
== END | disposition home or self-care (01) ==
LOC: LABWHC1 08:38
PROVIDERS: ATTEND Internal Medicine
DX: E87.8 Other disorders of electrolyte and fluid balance, not elsewhere classified (principal); E78.5 Hyperlipidemia, unspecified; I10 Essential (primary) hypertension; E29.1 Testicular hypofunction
CPT/HCPCS: 36415; 80053; 80061; 84403; 85025

== ENCOUNTER → 2018-02-18 | Outpatient (CLI) | payer BC ==
[2018-02-18 17:06] LABS: Calcium 9.2 mg/dL (8.4-10.2); Potassium 4.2 mmol/L (3.5-5.1)
[2018-02-18 17:27] LABS: Lithium 0.9 mmol/L
== END | disposition home or self-care (01) ==
LOC: LABWHC1 16:05
PROVIDERS: ATTEND Psychiatry & Neurology Psychiatry
DX: F31.60 Bipolar disorder, current episode mixed, unspecified (principal); Z79.899 Other long term (current) drug therapy
CPT/HCPCS: 36415; 80048; 80178

== ENCOUNTER → 2018-05-23 | Outpatient (CLI) | payer BC ==
[2018-05-23 15:51] LABS: HCT 42.4 % (39.0-53.0); HGB 13.5 gm/dL (13.0-17.5); MCH 30.5 pg (25.0-35.0); MCHC 31.8 g/dL (31.0-37.0); MCV 95.9 fL (80.0-100.0); Mean Platelet Volume 8.6; Platelet Count 149 k/uL (150-450); RBC 4.42 m/uL (4.30-5.90); RDW 13.6 % (11.5-15.5); WBC 7.9 k/uL (3.8-10.6)
[2018-05-24 02:49] LABS: Anion Gap 5.9 mmol/L (4.00-12.00); Calcium 9.1 mg/dL (8.7-10.3); Carbon Dioxide 25.1 mmol/L (21.6-31.8); Lithium 0.6 mmol/L (1.0-1.2); Potassium 3.9 mmol/L (3.5-5.5)
== END | disposition home or self-care (01) ==
LOC: LABWHC1 15:06
PROVIDERS: ATTEND Psychiatry & Neurology Psychiatry
DX: F31.60 Bipolar disorder, current episode mixed, unspecified (principal); Z79.899 Other long term (current) drug therapy
CPT/HCPCS: 36415; 80048; 80178; 84439; 84443; 84460; 85027

== ENCOUNTER → 2018-07-01 | Outpatient (CLI) | payer BC ==
--- NOTE | 2018-07-01 13:22 | XR ---
EXAMINATION TYPE: XR cervical spine comp DATE OF EXAM: 07/01/2018 COMPARISON: NONE HISTORY: Neck pain TECHNIQUE: Four views are submitted. FINDINGS: The odontoid is intact. There are no compression deformities. The prevertebral soft tissue structur es are within normal limits. There is severe degenerative disc disease and facet arthropathy from le evelia C3-C7. Alignment is only demonstrated to the level of C7. Foraminal encroachment at C5-6 and C4-C 5 suspected. IMPRESSION: 1. Multilevel degenerative disc disease and facet arthropathy with foraminal encroachment. Recommend follow-up MRI.
== END | disposition home or self-care (01) ==
LOC: RADXRMAIN 12:46
PROVIDERS: ATTEND Internal Medicine
DX: M50.31 Other cervical disc degeneration, high cervical region (principal); M46.92 Unspecified inflammatory spondylopathy, cervical region
CPT/HCPCS: 72050

== ENCOUNTER → 2018-08-24 | Outpatient (CLI) | payer BC ==
[2018-08-24 09:10] LABS: Basophils # (A) 0.1 k/uL (0-0.2); Basophils % (A) 1 %; Eosinophils # (A) 0.2 k/uL (0-0.7); Eosinophils % (A) 3 %; HCT 47.6 % (39.0-53.0); HGB 15.2 gm/dL (13.0-17.5); Lymphocytes # (A) 1.3 k/uL (1.0-4.8); Lymphocytes % (A) 23 %; MCHC 31.9 g/dL (31.0-37.0); MCV 94.3 fL (80.0-100.0); Mean Platelet Volume 7.4; Monocytes # (A) 0.4 k/uL (0-1.0); Monocytes % (A) 8 %; Neutrophils # (A) 3.5 k/uL (1.3-7.7); Neutrophils % (A) 64 %; Platelet Count 179 k/uL (150-450); RBC 5.05 m/uL (4.30-5.90); RDW 13.6 % (11.5-15.5); WBC 5.4 k/uL (3.8-10.6)
[2018-08-24 14:59] LABS: Erythrocyte Sedimentation Rate 4 mm/hr (0-15)
[2018-08-24 17:00] LABS: ALT 47 U/L (10-49); AST 27 U/L (14-35); Albumin/Globulin Ratio 2.15 (1.60-3.17); Alkaline Phosphatase 89 U/L (41-126); C Reactive Protein <0.4 mg/dL (0.0-0.8); Calcium 9.8 mg/dL (8.7-10.3); Carbon Dioxide 27.8 mmol/L (21.6-31.8); Chloride 109 mmol/L (96-109); Cholesterol 128 mg/dL (0-200); Creatine Kinase 149 U/L (35-257); Glucose 101 mg/dL (70-110); LDL Cholesterol,Calculated 74.8 mg/dL (0.0-131.0); Lithium 0.4 mmol/L (1.0-1.2); Magnesium 1.9 mg/dL (1.5-2.4); Phosphorus 3.3 mg/dL (2.4-5.1); Potassium 5.1 mmol/L (3.5-5.5); Sodium 142 mmol/L (135-145); Total Bilirubin 0.5 mg/dL (0.3-1.2); Total Protein 6.3 g/dL (6.2-8.2); Uric Acid 6.8 mg/dL (3.7-8.7)
[2018-08-24 17:30] LABS: Hemoglobin A1C 6.1 % (4.0-6.0)
== END ==
LOC: LABWHC1 08:11
PROVIDERS: ATTEND Internal Medicine
DX: Z00.00 Encounter for general adult medical examination without abnormal findings (principal); I25.10 Atherosclerotic heart disease of native coronary artery without angina pectoris; D64.9 Anemia, unspecified; N40.0 Benign prostatic hyperplasia without lower urinary tract symptoms; J44.9 Chronic obstructive pulmonary disease, unspecified; E11.9 Type 2 diabetes mellitus without complications; E87.8 Other disorders of electrolyte and fluid balance, not elsewhere classified; E78.5 Hyperlipidemia, unspecified; I10 Essential (primary) hypertension; M81.0 Age-related osteoporosis without current pathological fracture; E55.9 Vitamin D deficiency, unspecified; F31.60 Bipolar disorder, current episode mixed, unspecified; Z79.899 Other long term (current) drug therapy
CPT/HCPCS: 36415; 80053; 80061; 80178; 82306; 82550; 83036; 83735; 84100; 84153; 84439; 84443; 84550; 85025; 85652; 86140

== ENCOUNTER → 2018-09-27 | Outpatient (CLI) | payer BC | END | disposition home or self-care (01) | LOC: LABWHC1 14:12 | PROVIDERS: ATTEND Psychiatry & Neurology Psychiatry | DX: F31.60 Bipolar disorder, current episode mixed, unspecified (principal); Z79.899 Other long term (current) drug therapy | CPT/HCPCS: 36415; 80178 ==

== ENCOUNTER → 2018-10-08 | Outpatient (CLI) | payer BC ==
--- NOTE | 2018-10-08 10:44 | US ---
EXAMINATION TYPE: US duplex aorta DATE OF EXAM: 10/08/2018 COMPARISON: US 10/21/2015 CLINICAL HISTORY: R10.84 Abd pain. Difficult exam due to overlying bowel gas EXAM MEASUREMENTS: Abdominal Aorta: Proximal: 2.4 x 2.0 x 1.8 cm Mid: 1.9 x 1.8 x 1.7 cm Distal: 1.6 x 1.6 x 1.6 cm Bifurcation: RT: 1.1 x 1.0 cm LT: 0.8 x 1.0 cm Atherosclerotic changes visualized. Proximal portion appears ectatic. No sonographic evidence for AAA . IMPRESSION: Atherosclerotic change aorta. No sizable aneurysm.
== END | disposition home or self-care (01) ==
LOC: RADUSWWP 10:08
PROVIDERS: ATTEND Internal Medicine
DX: I70.0 Atherosclerosis of aorta (principal); R10.84 Generalized abdominal pain
CPT/HCPCS: 93979

== ENCOUNTER → 2018-11-15 | Outpatient (CLI) | payer BC | END | disposition home or self-care (01) | LOC: LABWHC1 16:11 | PROVIDERS: ATTEND Psychiatry & Neurology Psychiatry | DX: F31.60 Bipolar disorder, current episode mixed, unspecified (principal); Z79.899 Other long term (current) drug therapy | CPT/HCPCS: 36415; 80178 ==

== ENCOUNTER → 2019-02-04 | Outpatient (CLI) | payer OTHER ==
--- NOTE | 2019-02-04 11:17 | MR ---
EXAMINATION TYPE: MR cervical spine wo con DATE OF EXAM: 02/04/2019 8:47 AM COMPARISON: Cervical spine x-ray July 01, 2018. HISTORY: Cervicalgia. Neck pain into shoulders for 1 year per patient. Multiplanar MultiSpin echo imaging of the cervical spine was performed. Coronal images show slight levoconvex scoliotic curvature positioning centered in the upper thoracic spine. Exam is noted suboptimal due to motion artifact degradation. Slight grade 1 retrolisthesis C3 on C4 is redemonstrated. Vertebral body heights are maintained. [id number]-wd-[id number] disc space narrowing C3-C4 and C5-C6 levels is again seen. Bone marrow signal intensity is overall heterogeneous C2-C3: No evidence for degenerative disc disease. No disc bulge/herniation or protrusion. No Canal stenosis. Foramina are patent bilaterally. C3-C4: Uncovertebral facet degenerative changes bilaterally cause mild right and moderate to advanced left-sided neural foraminal narrowing. Tiny central disc protrusion and spondylolisthesis mildly eff aces the anterior thecal sac C4-C5: Uncovertebral facet degenerative changes cause mild left-sided neural foraminal narrowing. C5-C6: Broad-based right paracentral/foraminal disc protrusion effaces the anterior thecal sac and ca uses moderate to advanced right-sided neural foraminal narrowing. C6-C7: No evidence for degenerative disc disease. No disc bulge/herniation or protrusion. No Canal stenosis. Foramina are patent bilaterally. C7-T1: No evidence for degenerative disc disease. No disc bulge/herniation or protrusion. No Canal stenosis. Foramina are patent bilaterally. Cervical spinal cord is of normal signal and caliber. Craniovertebral junction relationships are wit hin normal limits. Heterogeneous thyroid with suspected greater than 1 cm left dizziness nodule axia l image 5 and posterior left thyroid nodule axial image 14. These findings correlate with multinodula r thyroid goiter on ultrasound November 11, 2014. IMPRESSION: Multilevel degenerative changes most prominent C3-C4 and C5-C6 level as detailed above.
== END | disposition home or self-care (01) ==
LOC: RADMRIMAIN 07:44
DX: M47.812 Spondylosis without myelopathy or radiculopathy, cervical region (principal)
CPT/HCPCS: 72141

== ENCOUNTER → 2019-02-24 | Outpatient (CLI) | payer OTHER ==
[2019-02-25 02:39] LABS: Follicle Stimulating Hormone 2.9 mIU/mL; Luteinizing Hormone 2.6 mIU/mL
== END | disposition home or self-care (01) ==
LOC: LABWHC1 16:26
PROVIDERS: ATTEND Internal Medicine
DX: E29.1 Testicular hypofunction (principal); N52.9 Male erectile dysfunction, unspecified
CPT/HCPCS: 36415; 83001; 83002; 84146; 84402; 84403

== ENCOUNTER → 2019-04-03 | Outpatient (CLI) | payer OTHER ==
[2019-04-03 17:52] LABS: Lithium 0.8 mmol/L (0.5-1.2)
== END | disposition home or self-care (01) ==
LOC: LABWHC1 10:21
PROVIDERS: ATTEND Psychiatry & Neurology Psychiatry
DX: F31.60 Bipolar disorder, current episode mixed, unspecified (principal); Z79.899 Other long term (current) drug therapy
CPT/HCPCS: 36415; 80178; 84439; 84443

== ENCOUNTER → 2019-06-14 | Outpatient (CLI) | payer OTHER ==
[2019-06-14 09:16] LABS: Basophils % (A) 1 %; Eosinophils # (A) 0.1 k/uL (0-0.7); Eosinophils % (A) 2 %; HCT 52.3 % (39.0-53.0); HGB 16.8 gm/dL (13.0-17.5); Lymphocytes # (A) 1.5 k/uL (1.0-4.8); Lymphocytes % (A) 24 %; MCH 30.9 pg (25.0-35.0); MCV 96.3 fL (80.0-100.0); Mean Platelet Volume 8.6; Monocytes # (A) 0.4 k/uL (0-1.0); Monocytes % (A) 6 %; Neutrophils # (A) 4.3 k/uL (1.3-7.7); Neutrophils % (A) 67 %; Platelet Count 168 k/uL (150-450); RBC 5.43 m/uL (4.30-5.90); RDW 12.8 % (11.5-15.5); WBC 6.5 k/uL (3.8-10.6)
[2019-06-14 13:29] LABS: Erythrocyte Sedimentation Rate 6 mm/hr (0-15)
[2019-06-14 17:35] LABS: ALT 50 U/L (10-49); AST 26 U/L (14-35); African American GFR (CKD) 74.1 (60.0-200.0); Albumin/Globulin Ratio 2.26 (1.60-3.17); Alkaline Phosphatase 101 U/L (41-126); BUN/Creat Ratio 16.67 Ratio (12.00-20.00); C Reactive Protein <0.4 mg/dL (0.0-0.8); Calcium 9.9 mg/dL (8.7-10.3); Carbon Dioxide 28.6 mmol/L (21.6-31.8); Chloride 109 mmol/L (96-109); Chol/HDL Ratio 3.41; Cholesterol 116 mg/dL (0-200); Creatine Kinase 62 U/L (35-257); Globulin 1.9 g/dL (1.6-3.3); Glucose 104 mg/dL (70-110); LDL Cholesterol,Calculated 58.4 mg/dL (0.0-131.0); Lithium 0.6 mmol/L (0.5-1.2); Potassium 4.5 mmol/L (3.5-5.5); Sodium 144 mmol/L (135-145); Total Bilirubin 0.4 mg/dL (0.3-1.2); Total Protein 6.2 g/dL (6.2-8.2)
== END | disposition home or self-care (01) ==
LOC: LABWHC1 08:11
PROVIDERS: ATTEND Internal Medicine
DX: D64.9 Anemia, unspecified (principal); E87.8 Other disorders of electrolyte and fluid balance, not elsewhere classified; E78.5 Hyperlipidemia, unspecified; I10 Essential (primary) hypertension; F31.60 Bipolar disorder, current episode mixed, unspecified; Z79.899 Other long term (current) drug therapy
CPT/HCPCS: 36415; 80053; 80061; 80178; 82272; 82550; 84153; 85025; 85652; 86140

== ENCOUNTER → 2019-09-18 | Outpatient (CLI) | payer OTHER | END | disposition home or self-care (01) | LOC: LABT 11:50 | PROVIDERS: ATTEND Psychiatry & Neurology Psychiatry | DX: F31.60 Bipolar disorder, current episode mixed, unspecified (principal); Z79.899 Other long term (current) drug therapy | CPT/HCPCS: 36415; 80178 ==

== ENCOUNTER → 2019-10-22 | Outpatient (CLI) | payer OTHER ==
[2019-10-22 11:35] LABS: HCT 47.7 % (39.0-53.0); MCH 30.2 pg (25.0-35.0); MCHC 31.5 g/dL (31.0-37.0); MCV 95.8 fL (80.0-100.0); Mean Platelet Volume 9.4; Platelet Count 210 k/uL (150-450); RBC 4.98 m/uL (4.30-5.90); RDW 13.2 % (11.5-15.5); WBC 10.1 k/uL (3.8-10.6)
[2019-10-22 15:29] LABS: African American GFR (CKD) 74.1 (60.0-200.0); Anion Gap 5.9 mmol/L (4.00-12.00); BUN/Creat Ratio 15.83 Ratio (12.00-20.00); Calcium 9.4 mg/dL (8.7-10.3); Carbon Dioxide 27.1 mmol/L (21.6-31.8); Lithium 1.3 mmol/L (0.5-1.2); Potassium 4.6 mmol/L (3.5-5.5)
== END | disposition home or self-care (01) ==
LOC: LABWHC1 10:46
PROVIDERS: ATTEND Psychiatry & Neurology Psychiatry
DX: F31.60 Bipolar disorder, current episode mixed, unspecified (principal); Z79.899 Other long term (current) drug therapy
CPT/HCPCS: 36415; 80048; 80178; 85027